=== PATIENT | female | born 1975 | race Caucasian/White ===

== ENCOUNTER 2017-02-02 13:46 | Emergency (ER) | payer BC, OTHER ==
[~2017-02-02] VITALS: Ht 152.4 cm; Wt 49.0 kg
[2017-02-02] MEDS ORDERED: ASPIRIN 81 MG CHEW (CHILDREN'S ASA) PO STA (14:10)
[2017-02-02] MEDS ORDERED: NS IV 1000 ML 1,000 ML IV ONE (14:10)
[2017-02-02] MEDS ORDERED: predniSONE 20 MG TAB PO ONE (14:15)
[2017-02-02 14:17] LABS: BASOPHILS % (AUTO) 1 % (0-10); EOSINOPHILS % (AUTO) 1 % (0-10); LYMPHOCYTES # (AUTO) 0.6 X 10^3 (1.0-4.0); LYMPHOCYTES % (AUTO) 14 % (12-44); MEAN CORPUSCULAR HEMOGLOBIN 29 PG (25-34); MEAN CORPUSCULAR HGB CONC 35 G/DL (32-36); MEAN CORPUSCULAR VOLUME 85 FL (80-99); MEAN PLATELET VOLUME 10.7 FL (7.4-10.4); MONOCYTES # (AUTO) 0.1 X 10^3 (0.0-1.0); MONOCYTES % (AUTO) 3 % (0-12); NEUTROPHILS # (AUTO) 3.6 X 10^3 (1.8-7.8); NEUTROPHILS % (AUTO) 82 % (42-75); PLATELET COUNT 230 10^3/uL (130-400); RED BLOOD COUNT 4.13 10^6/uL (4.35-5.85); RED CELL DISTRIBUTION WIDTH 14.7 % (10.0-14.5); WHITE BLOOD COUNT 4.4 10^3/uL (4.3-11.0)
[2017-02-02] MEDS ORDERED: HYDR200T PO (14:19)
[2017-02-02 14:25] LABS: PROTHROMBIN TIME PATIENT 13.6 SEC (12.2-14.7)
[2017-02-02 14:32] LABS: ALANINE AMINOTRANSFERASE 8 U/L (0-55); ALBUMIN 3.1 GM/DL (3.2-4.5); ANION GAP 13 MMOL/L (5-14); ASPARTATE AMINO TRANSFERASE 24 U/L (5-34); BILIRUBIN,TOTAL 0.4 MG/DL (0.1-1.0); BLOOD UREA NITROGEN 10 MG/DL (7-18); BUN/CREATININE RATIO 12; CALCIUM 8.9 MG/DL (8.5-10.1); CARBON DIOXIDE 23 MMOL/L (21-32); CHLORIDE 98 MMOL/L (98-107); CREATININE SERUM 0.81 MG/DL (0.60-1.30); GFR ESTIMATED > 60; GLUCOSE 139 MG/DL (70-105); MAGNESIUM 1.3 MG/DL (1.8-2.4); POTASSIUM 3.2 MMOL/L (3.6-5.0); SODIUM 134 MMOL/L (135-145)
--- NOTE | 2017-02-02 14:36 | ED Chest Pain ---
General Chief Complaint: Chest Pain Stated Complaint: CHEST PAIN/SOA/HEART PALPATATIONS/PAIN Nursing Triage Note: ARRIVED VIA AMB TO ROOM 04 WITH COMPLAINTS OF PALPITATIONS OFF AND ON FOR 2 DAYS WITH CHEST PAIN STARTING TODAY. Nursing Sepsis Screen: No Definite Risk Source: patient Exam Limitations: no limitations History of Present Illness Time seen by provider: 14:05 Initial Comments Here with report of central chest pain that is nonradiating and started early this morning. It has been intermittent and resolved currently. Is associated with nausea but no vomiting. Has chronic diarrhea. States she had a heart attack earlier this year that she was told was related to her lupus or are a. She did not have a heart catheter at that time. She reports her troponin was elevated. She is on medicine for a week related to A. fib and then off that. She is currently only on one medicine now. Was previously on prednisone daily but was tapered and has been off prednisone for 3 weeks now reports every time she does this in the 4 times a day tried she has had flare and had to be on prednisone again. She does report that she feels like she has a lupus flare: On right now as her joints are aching. Did report that she had palpitations 3 days ago in 2 days ago but none now. Moved to the area one month ago. She has follow-up with a display screen fabricator in the area next . Timing/Duration: changing over time, 2-3 days Severity/Quality: aching Location: central Radiation: no radiation Activities at Onset: none Modifying Factors: improves with rest ASA po BROOMCORN SCRAPER: No NTG SL BROOMCORN SCRAPER: No Associated Symptoms: No abdominal pain, No back pain, No dizziness, No fever/ chills, nausea/vomiting, No shortness of breath, weakness Allergies and Home Medications Allergies Coded Allergies: doxycycline (Verified Allergy, Severe, HYPOTENSION, 02/02/17) Home Medications Hydroxychloroquine Sulfate 200 Mg Tablet, 200 MG PO DAILY, (Reported) Prednisone 20 Mg Tab, 20 MG PO DAILY, #6 Ref 0 Prescribed by: TIM JAIME on 02/02/17 [id number] Review of Systems Constitutional: see HPI, No chills, No fever EENTM: No Symptoms Reported Respiratory: No Symptoms Reported Cardiovascular: See HPI, Chest Pain, Denies Edema, Irregular Heart Rate, Palpitations Gastrointestinal: Diarrhea, Nausea, Denies Vomiting Genitourinary: No Symptoms Reported Musculoskeletal: joint pain, No joint swelling Skin: no symptoms reported Psychiatric/Neurological: No Symptoms Reported Endocrine: No Symptoms Reported All Other Systems Reviewed Negative Unless Noted: Yes Past Qfjawtq-Ppcguz-Igwzkh Hx Patient Social History Alcohol Use: Denies Use Recreational Drug Use: No Smoking Status: Current Everyday Smoker Recent Foreign Travel: No Contact w/Someone Who Travel: No Recent Infectious Disease Expo: No Recent Hopitalizations: No Surgeries History of Surgeries: Yes (BILAT OVERIES) Surgeries: Appendectomy, Breast, Gallbladder Respiratory History of Respiratory Disorde: No Cardiovascular History of Cardiac Disorders: Yes Cardiac Disorders: Heart Attack, Hypertension Neurological History of Neurological Disord: Yes Neurological Disorders: Stroke Genitourinary History of Genitourinary Disor: No Gastrointestinal History of Gastrointestinal Di: No Musculoskeletal History of Musculoskeletal Dis: Yes Musculoskeletal Disorders: Rheumatoid Arthritis Endocrine History of Endocrine Disorders: Yes (LUPUS) Endocrine Disorders: Lupus HEENT History of HEENT Disorders: No Blood Transfusions History of Blood Disorders: Yes (FACTOR V, SICKLE CELL TRAIT) Reviewed Nursing Assessment Reviewed/Agree w Nursing PMH: Yes Family Medical History Significant Family History: Cancer Physical Exam Vital Signs Vital Sign - Last 12Hours 02/02/17 13:48 Temp 98.0 Pulse 112 Resp 18 B/P (MAP) 121/73 Pulse Ox 98 Capillary Refill : Less Than 3 Seconds General Appearance: No Apparent Distress, WD/WN HEENT: PERRL/EOMI, Pharynx Normal Neck: Supple Respiratory: Lungs Clear, Normal Breath Sounds Cardiovascular: Regular Rate, Rhythm, No Murmur Gastrointestinal: Non Tender, Soft Extremity: Normal Range of Motion, Non Tender Neurologic/Psychiatric: Alert, Oriented x3 Skin: Normal Color, Warm/Dry Progress/Results/Core Measures Results/Orders Lab Results Laboratory Tests Test 02/02/17 13:55 Range/Units White Blood Count 4.4 4.3-11.0 10^3/uL Red Blood Count 4.13 L 4.35-5.85 10^6/uL Hemoglobin 12.1 11.5-16.0 G/DL Hematocrit 35 35-52 % Mean Corpuscular Volume 85 80-99 FL Mean Corpuscular Hemoglobin 29 25-34 PG Mean Corpuscular Hemoglobin Concent 35 32-36 G/DL Red Cell Distribution Width 14.7 H 10.0-14.5 % Platelet Count 230 130-400 10^3/uL Mean Platelet Volume 10.7 H 7.4-10.4 FL Neutrophils (%) (Auto) 82 H 42-75 % Lymphocytes (%) (Auto) 14 12-44 % Monocytes (%) (Auto) 3 0-12 % Eosinophils (%) (Auto) 1 0-10 % Basophils (%) (Auto) 1 0-10 % Neutrophils # (Auto) 3.6 1.8-7.8 X 10^3 Lymphocytes # (Auto) 0.6 L 1.0-4.0 X 10^3 Monocytes # (Auto) 0.1 0.0-1.0 X 10^3 Eosinophils # (Auto) 0.0 0.0-0.3 10^3/uL Basophils # (Auto) 0.0 0.0-0.1 10^3/uL Prothrombin Time 13.6 12.2-14.7 SEC INR Comment 1.0 0.8-1.4 Activated Partial Thromboplast Time 29 24-35 SEC Sodium Level 134 L 135-145 MMOL/L Potassium Level 3.2 L 3.6-5.0 MMOL/L Chloride Level 98 98-107 MMOL/L Carbon Dioxide Level 23 21-32 MMOL/L Anion Gap 13 5-14 MMOL/L Blood Urea Nitrogen 10 7-18 MG/DL Creatinine 0.81 0.60-1.30 MG/DL Estimat Glomerular Filtration Rate > 60 BUN/Creatinine Ratio 12 Glucose Level 139 H 70-105 MG/DL Calcium Level 8.9 8.5-10.1 MG/DL Magnesium Level 1.3 L 1.8-2.4 MG/DL Total Bilirubin 0.4 0.1-1.0 MG/DL Aspartate Amino Transf (AST/SGOT) 24 5-34 U/L Alanine Aminotransferase (ALT/SGPT) 8 0-55 U/L Alkaline Phosphatase 57 40-136 U/L Myoglobin 46.8 10.0-92.0 NG/ML Troponin I < 0.30 <0.30 NG/ML Total Protein 7.0 6.4-8.2 GM/DL Albumin 3.1 L 3.2-4.5 GM/DL My Orders Orders - TIM JAIME MD Ekg Tracing (02/02/17 13:48) Cbc With Automated Diff (02/02/17 14:10) Magnesium (02/02/17 14:10) Chest 1 View, Ap/Pa Only (02/02/17 14:10) Cardiac Profile 1 (02/02/17 14:10) Comprehensive Metabolic Panel (02/02/17 14:10) Myoglobin Serum (02/02/17 14:10) Protime With Inr (02/02/17 14:10) Partial Thromboplastin Time (02/02/17 14:10) O2 (02/02/17 14:10) Monitor-Rhythm Ecg Trace Only (02/02/17 14:10) Lipid Panel (02/03/17 06:00) Saline Lock/Iv-Start (02/02/17 14:10) Ns Iv 1000 Ml (Sodium Chloride 0.9%) (02/02/17 14:10) Aspirin Chewable Tablet (Baby Aspirin Ch (02/02/17 14:10) Prednisone Tablet (Deltasone Tablet) (02/02/17 14:15) Ekg Tracing (02/02/17 16:01) Troponin I (02/02/17 16:01) Medications Given in ED Current Medications Medications Dose Ordered Sig/Alyssa Route Start Time Stop Time Status Last Admin Dose Admin Prednisone 40 mg ONCE ONCE PO 02/02/17 14:15 02/02/17 14:16 DC 02/02/17 14:25 40 MG Sodium Chloride 1,000 ml @ 0 mls/hr Q0M ONCE IV 02/02/17 14:10 02/02/17 14:13 DC 02/02/17 14:24 1,000 MLS/HR Vital Signs/I&O Vital Sign - Last 12Hours 02/02/17 13:48 Temp 98.0 Pulse 112 Resp 18 B/P (MAP) 121/73 Pulse Ox 98 Blood Pressure Mean: 89 Progress Note : Progress Note Seen and evaluated. IV, labs, EKG and chest x-ray. ASA 324 mg by mouth given. Monitor patient. 1600: No acute findings. Patient better after fluids and prednisone. Repeat troponin and EKG. ECG Initial ECG Impression Date: Feb 02, 2017 Initial ECG Impression Time: 13:51 Initial ECG Rate: 112 Initial ECG Rhythm: S.Tach Comment Sinus tachycardia with PVC. Left ventricular hypertrophy noted. No evidence of ST elevation MT. No previous available for comparison. Interpreted by me. EKG : EKG Time: 16:05 Rate: 89 Rhythm: Normal Sinus Intervals Sinus rhythm with LVH. No evidence of ST elevation MT. Improved with respect to rate. Interpreted by me. Departure Impression Impression: Primary Impression: Chest pain Qualified Codes: R07.9 - Chest pain, unspecified Additional Impression: Lupus Qualified Codes: L93.0 - Discoid lupus erythematosus Disposition: 01 HOME, SELF-CARE Condition: Improved Departure-Patient Inst. Decision time for Depature: 16:04 Referrals: RUPALI BAGLEY MD FACP [facility]S August HAYES MD, BASHAR J MD NO,LOCAL PHYSICIAN (PCP) Primary Care Physician Patient Instructions: Chest Pain (DC), Lupus (DC) Add. Discharge Instructions: All discharge instructions reviewed with patient and/or family. Voiced understanding. Take medications as directed. Follow-up with your Dr. as scheduled next for for recheck and further evaluation including continuation of steroids as indicated. Return for worse pain, fever, vomiting, weakness, breathing problems or other concerns as needed. Follow-up with the solder deposit operator within one week for recheck and further evaluation as well. You may call the solder deposit operator listed for of your choice. Scripts Prednisone (Prednisone) 20 Mg Tab 20 MG PO DAILY, #6 TAB 0 Refills Prov: TIM JAIME MD 02/02/17 TIM JAIME MD Feb 02, 2017 14:36
[2017-02-02 14:39] LABS: MYOGLOBIN SERUM 46.8 NG/ML (10.0-92.0)
--- NOTE | 2017-02-02 14:55 | Diagnostic Imaging Report ---
INDICATION: Chest pain. FINDINGS: Lungs are clear. The heart and vessels normal. No effusion or pneumothorax. IMPRESSION: Negative chest. Dictated by: Dictated on workstation # [id number]
[2017-02-02] MEDS ORDERED: PRD20T PO (16:06)
[2017-02-02 17:19] VITALS: BP 129/69
== END 2017-02-02 17:19 | disposition home or self-care (01) ==
LOC: EDUNIT# 13:46 → ER 13:54
DX: R07.89 Other chest pain (principal); L93.2 Other local lupus erythematosus; I48.91 Unspecified atrial fibrillation; I25.2 Old myocardial infarction; I10 Essential (primary) hypertension; D57.3 Sickle-cell trait; F17.200 Nicotine dependence, unspecified, uncomplicated; Z86.73 Personal history of transient ischemic attack (TIA), and cerebral infarction without residual deficits; Z90.49 Acquired absence of other specified parts of digestive tract
CPT/HCPCS: 36415; 71010; 80053; 83735; 83874; 84484; 85025; 85610; 85730; 93005; 93041; 96360

== ENCOUNTER → 2017-04-18 | Outpatient (CLI) | payer BC ==
[~2017-04-18] MED LIST: HYDR200T PO; PRD20T PO
[2017-04-19 20:56] LABS: TB GOLD MITOGEN-NIL VALUE 0.54 IU/mL (0.50-10.00); TB GOLD QUANTIFERON INTERP Negative (Negative)
[2017-04-20 06:57] LABS: TB GOLD NIL VALUE 0.06 IU/mL (0.00-7.99); TB GOLD TB ANTIGEN-NIL VALUE <0.00 IU/mL (0.00-0.34)
== END ==
LOC: LAB 11:41
PROVIDERS: ATTEND Internal Medicine Rheumatology
DX: Z51.81 Encounter for therapeutic drug level monitoring (principal); Z79.899 Other long term (current) drug therapy
CPT/HCPCS: 36415; 86480

== ENCOUNTER → 2017-06-22 | Outpatient (CLI) | payer OTHER ==
--- NOTE | 2017-06-22 13:37 | Diagnostic Imaging Report ---
INDICATION: Cough and shortness of breath. Time of exam 1:47 PM Correlation is made with prior study from 02/02/2017. The heart size is normal. The pulmonary vascularity is unremarkable. The lungs are clear. No infiltrate, effusion or pneumothorax is detected. Impression: No acute cardiopulmonary process is detected. Dictated by: Dictated on workstation # [id number]
== END ==
LOC: RT 12:52
PROVIDERS: ATTEND Neuromusculoskeletal Medicine, Sports Medicine
DX: Z02.71 Encounter for disability determination (principal)
CPT/HCPCS: 71046; 94060

== ENCOUNTER → 2017-07-30 | Outpatient (CLI) | payer BC, MEDICAID ==
[~2017-07-30] MED LIST changes: -HYDR200T PO; +HYDR200T78 PO
[2017-07-30 10:55] LABS: BILIRUBIN,URINE NEGATIVE (NEGATIVE); CLARITY,URINE CLEAR; COLOR,URINE YELLOW; GLUCOSE, URINE (UA) NEGATIVE (NEGATIVE); KETONES,URINE NEGATIVE (NEGATIVE); LEUKOCYTE ESTERASE ,URINE 2+ (NEGATIVE); NITRITE,URINE NEGATIVE (NEGATIVE); PH,URINE 6 (5-9); PROTEIN,URINE NEGATIVE (NEGATIVE); UROBILINOGEN,URINE NORMAL (NORMAL)
[2017-07-30 11:14] LABS: BACTERIA,URINE TRACE /HPF
[2017-07-30 11:15] LABS: SQUAMOUS EPITHELIAL CELL,UR RARE /HPF
== END ==
LOC: LAB 10:21
PROVIDERS: ATTEND Internal Medicine Rheumatology
DX: M32.19 Other organ or system involvement in systemic lupus erythematosus (principal)
CPT/HCPCS: 36415; 81000; 82570; 84156; 85652; 86141; 86160; 86225

== ENCOUNTER → 2017-10-23 | Outpatient (CLI) | payer BC, MEDICAID ==
[~2017-10-23] MED LIST changes: +ACET-2469 PO; +BUSP7.5T5 PO; +CALC-654 PO; +CELE100C84 PO; +CLIN300C11 PO; +FOLI1TAB24 PO; +HYDR200T46 PO; +LIFI1DRO OU; +METH2.5T PO; +MULT-35 PO; +PRED5TAB PO; +PREG75CA PO
[2017-10-23 15:06] LABS: BASOPHILS % (AUTO) 0 % (0-10); EOSINOPHILS # (AUTO) 0.1 10^3/uL (0.0-0.3); EOSINOPHILS % (AUTO) 1 % (0-10); HEMATOCRIT 37 % (35-52); HEMOGLOBIN 12.7 G/DL (11.5-16.0); LYMPHOCYTES # (AUTO) 1.3 X 10^3 (1.0-4.0); LYMPHOCYTES % (AUTO) 24 % (12-44); MEAN CORPUSCULAR HEMOGLOBIN 32 PG (25-34); MEAN CORPUSCULAR HGB CONC 35 G/DL (32-36); MEAN CORPUSCULAR VOLUME 92 FL (80-99); MONOCYTES # (AUTO) 0.2 X 10^3 (0.0-1.0); MONOCYTES % (AUTO) 3 % (0-12); NEUTROPHILS % (AUTO) 72 % (42-75); PLATELET COUNT 241 10^3/uL (130-400); RED BLOOD COUNT 3.99 10^6/uL (4.35-5.85); RED CELL DISTRIBUTION WIDTH 14.4 % (10.0-14.5); WHITE BLOOD COUNT 5.6 10^3/uL (4.3-11.0)
[2017-10-23 15:11] LABS: BILIRUBIN,URINE NEGATIVE (NEGATIVE); CLARITY,URINE CLEAR; COLOR,URINE YELLOW; GLUCOSE, URINE (UA) NEGATIVE (NEGATIVE); KETONES,URINE NEGATIVE (NEGATIVE); LEUKOCYTE ESTERASE ,URINE 1+ (NEGATIVE); NITRITE,URINE NEGATIVE (NEGATIVE); PH,URINE 5 (5-9); PROTEIN,URINE NEGATIVE (NEGATIVE); UROBILINOGEN,URINE NORMAL (NORMAL)
[2017-10-23 15:25] LABS: BACTERIA,URINE TRACE /HPF; WBC,URINE 0-2 /HPF
[2017-10-23 15:25] LABS: ALBUMIN 4.1 GM/DL (3.2-4.5); BILIRUBIN,DIRECT 0.1 MG/DL (0.0-0.3); BILIRUBIN,INDIRECT 0.2 MG/DL; BILIRUBIN,TOTAL 0.3 MG/DL (0.1-1.0); CREATININE SERUM 0.92 MG/DL (0.60-1.30); TOTAL PROTEIN 7.6 GM/DL (6.4-8.2)
[2017-10-23 15:55] LABS: ERYTHROCYTE SEDIMENTATION RATE 32 MM/HR (0-20)
== END ==
LOC: LAB 14:41
PROVIDERS: ATTEND Internal Medicine Rheumatology
DX: M32.19 Other organ or system involvement in systemic lupus erythematosus (principal); Z79.899 Other long term (current) drug therapy
CPT/HCPCS: 36415; 80076; 81000; 82565; 82570; 84156; 85025; 85652; 86141; 86160; 86225

== ENCOUNTER → 2017-10-24 | Outpatient (CLI) | payer BC, MEDICAID | LOC: LAB 09:36 | PROVIDERS: ATTEND Internal Medicine Rheumatology | DX: M32.19 Other organ or system involvement in systemic lupus erythematosus (principal); M79.674 Pain in right toe(s) | CPT/HCPCS: 36415; 84550 ==

== ENCOUNTER → 2017-10-30 | Outpatient (CLI) | payer BC, MEDICAID ==
--- NOTE | 2017-10-30 17:44 | Diagnostic Imaging Report ---
INDICATION: Right big toe pain x2 months. Redness. No known trauma. TECHNIQUE: 3 views of the toe. CORRELATION STUDY: None FINDINGS: There lucency noted about the distal phalanx of the great toe with somewhat of an erosive appearance. There is loss of cortex particularly along its dorsal distal aspect. The proximal phalanx and visualized portion of the first metatarsal intact. Some soft tissue swelling is noted. IMPRESSION: Abnormal appearance of the distal phalanx of the great toe. There is somewhat of an erosive appearance and does raise concern for potential osteomyelitis. Underlying nonhealing fracture not excluded. Dictated by: Dictated on workstation # [id number]
--- NOTE | 2017-10-30 17:58 | Diagnostic Imaging Report ---
INDICATION: Big toe pain x2 months with little redness. TECHNIQUE: Three views of the right foot. CORRELATION STUDY: None FINDINGS: Diffuse bony demineralization is present. There is abnormal lucency about the distal phalanx of the great toe. There does appear to be presence of a fracture line. However, there is also suggestion of some erosion. Remaining osseous structures demonstrate no acute bony abnormality. Soft tissue swelling in the region of the great toe. IMPRESSION: 1. Abnormal appearance about the distal phalanx of the great toe. While conceivably could be reflective of a fracture, does appear to be somewhat of an erosive appearance along with soft tissue swelling. Given history of no known trauma, possibility of osteomyelitis should be considered and is suspect. Dictated by: Dictated on workstation # [id number]
== END ==
LOC: RAD 14:03
PROVIDERS: ATTEND Family Medicine
DX: M79.674 Pain in right toe(s) (principal); M79.671 Pain in right foot
CPT/HCPCS: 73630; 73660

== ENCOUNTER 2017-11-01 11:09 | Inpatient (IN) | payer BC, MEDICAID ==
[~2017-11-01] VITALS: Ht 152.4 cm; Wt 56.0 kg
[~2017-11-01 11:09] MED LIST changes: -ACET-2469 PO; -BUSP7.5T5 PO; -CALC-654 PO; -CELE100C84 PO; -CLIN300C11 PO; -FOLI1TAB24 PO; -HYDR200T46 PO; -LIFI1DRO OU; -METH2.5T PO; -MULT-35 PO; -PRED5TAB PO; -PREG75CA PO
[2017-11-01] MEDS ORDERED: PREG75CA PO ×2 (14:54)
[2017-11-01] MEDS ORDERED: HYDR200T46 PO (14:54)
[2017-11-01] MEDS ORDERED: CELE100C84 PO (14:54)
[2017-11-01] MEDS ORDERED: FOLI1TAB24 PO (14:54)
[2017-11-01] MEDS ORDERED: BUSP7.5T5 PO (14:54)
[2017-11-01] MEDS ORDERED: LIFI1DRO OU (14:54)
[2017-11-01] MEDS ORDERED: PRED5TAB PO (14:54)
[2017-11-01] MEDS ORDERED: MULT-35 PO (14:57)
[2017-11-01] MEDS ORDERED: CALC-654 PO (14:57)
[2017-11-01] MEDS ORDERED: ACET-2469 PO (14:57)
[2017-11-01] MEDS ORDERED: METH2.5T PO (15:00)
[2017-11-01] MEDS: ENOXAPARIN 40 MG/0.4 ML (LOVENOX) SYR SC SCH (15:16)
[2017-11-01] MEDS ORDERED: GADOBUTROL 7.5 MMOL/7.5 ML (GADAVIST) VIAL IV ONE (15:30)
[2017-11-01 16:10] VITALS: BP 109/55
--- NOTE | 2017-11-01 16:14 | Diagnostic Imaging Report ---
PROCEDURE: MR imaging right lower extremity with and without contrast. TECHNIQUE: Multiplanar, multisequence pre and post contrast-enhanced MR imaging of the right lower extremity was accomplished. INDICATION: Right great toe infection. Evaluate for osteomyelitis. COMPARISON: Radiographs from 10/30/2017. FINDINGS: Abnormal bone marrow edema throughout the great toe distal phalanx with associated T1 hypointense marrow replacement and avid homogeneous enhancement. The proximal phalanx of the great toe is normal. Remainder of the osseous structures in the visualized forefoot are normal. No soft tissue fluid collection to indicate drainable abscess. Intrinsic musculature of the foot is normal in bulk. No intermetatarsal bursitis. IMPRESSION: 1. Abnormal edema and bone marrow replacement in the great toe distal phalanx is concerning for osteomyelitis in the setting of a dermal ulcer/nail bed defect. If the patient does not have a dermal ulcer/nailbed defect, then osteomyelitis may not be present. These changes could be due to a fracture, although this is felt less likely. Therefore, if the clinical features do not support osteomyelitis, a followup MRI in 2-3 weeks is advised to assess for healing changes. Dictated by: Dictated on workstation # [id number]
[2017-11-01 16:24] LABS: BASOPHILS % (AUTO) 0 % (0-10); EOSINOPHILS # (AUTO) 0.1 10^3/uL (0.0-0.3); EOSINOPHILS % (AUTO) 1 % (0-10); HEMATOCRIT 35 % (35-52); HEMOGLOBIN 12.5 G/DL (11.5-16.0); LYMPHOCYTES # (AUTO) 1.3 X 10^3 (1.0-4.0); LYMPHOCYTES % (AUTO) 21 % (12-44); MEAN CORPUSCULAR HEMOGLOBIN 33 PG (25-34); MEAN CORPUSCULAR HGB CONC 36 G/DL (32-36); MEAN CORPUSCULAR VOLUME 91 FL (80-99); MEAN PLATELET VOLUME 11.6 FL (7.4-10.4); MONOCYTES # (AUTO) 0.3 X 10^3 (0.0-1.0); MONOCYTES % (AUTO) 5 % (0-12); NEUTROPHILS # (AUTO) 4.3 X 10^3 (1.8-7.8); NEUTROPHILS % (AUTO) 72 % (42-75); PLATELET COUNT 216 10^3/uL (130-400); RED BLOOD COUNT 3.79 10^6/uL (4.35-5.85); RED CELL DISTRIBUTION WIDTH 14.7 % (10.0-14.5); WHITE BLOOD COUNT 5.9 10^3/uL (4.3-11.0)
[2017-11-01 16:44] LABS: ALANINE AMINOTRANSFERASE 9 U/L (0-55); ALBUMIN 4.4 GM/DL (3.2-4.5); ALKALINE PHOSPHATASE 45 U/L (40-136); BILIRUBIN,TOTAL 0.3 MG/DL (0.1-1.0); BUN/CREATININE RATIO 10; CALCIUM 9.7 MG/DL (8.5-10.1); CARBON DIOXIDE 27 MMOL/L (21-32); CHLORIDE 104 MMOL/L (98-107); CREATININE SERUM 0.84 MG/DL (0.60-1.30); GFR ESTIMATED > 60; GLUCOSE 84 MG/DL (70-105); POTASSIUM 3.9 MMOL/L (3.6-5.0); SODIUM 139 MMOL/L (135-145); TOTAL PROTEIN 7.9 GM/DL (6.4-8.2)
[2017-11-01 16:46] LABS: ERYTHROCYTE SEDIMENTATION RATE 25 MM/HR (0-20)
[2017-11-01] MEDS ORDERED: VANCOMYCIN INJECTION 0.1 MG in NS (IVPB) 250 ML IV SCH (17:30)
--- NOTE | 2017-11-01 17:35 | History & Physical ---
History of Present Illness History of Present Illness Reason for visit/HPI 42 year old female directly admitted for right great toe osteomyelitis- Onset of right great toe pain: around 2 months ago when it started with an ingrown toenail. Location? R great toe Symptoms: joint pain, burning, no oozing, no swelling- difficulty bending the toe. Medicine used: soaking in Epsom, abx cream. What makes it worse? pressure , even light pressure such as her sheet at night ; industrial accountant stan a uric acid level on her recently because he wondered if she had gout. Of note patient is on methotrexate for her SLE. We will hold her methotrexate for now- I have updated Dr. Tye Manuel, Rheumatology. What makes it better? nothing Current Status: worsening Denies chills, She is on 5mg prednisone and plaquenil for lupus. Denies fever, diarrhea, vomiting. Normal urinating, bowel movements She has frequent ingrown toenails. she removed the ingrown part of the toenail herself around 09/29/17. She finished 10 days of doxycycline on 10/10/17- which the paronychia aspect improved a great deal but the joint pain lingered. Patient does continue to smoke cigarettes. Date of Admission Nov 01, 2017 at 13:41 Date Seen by Provider: Nov 01, 2017 Time Seen by Provider: 18:00 I consulted on this patient on 11/01/17 17:27 Attending Physician Matt Granda MD Admitting Physician Matt Granda MD Consult Podiatry Dr. Adams Allergies and Home Medications Allergies Coded Allergies: doxycycline (Verified Allergy, Severe, HYPOTENSION, 02/02/17) Home Medications Acetaminophen/Diphenhydramine 1 Each Tablet, 2 TAB PO HS, (Reported) Buspirone HCl 7.5 Mg Tablet, 7.5 MG PO BID, (Reported) Calcium Carbonate/Vitamin D3 1 Each Tablet, 1 TAB PO DAILY, (Reported) Celecoxib 100 Mg Capsule, 100 MG PO BID, (Reported) Folic Acid 1 Mg Tablet, 2 MG PO DAILY, (Reported) TAKES 2 (1MG) TABLETS Hydroxychloroquine Sulfate 200 Mg Tablet, 300 MG PO HS, (Reported) TAKES 1 & 1/2 (200MG) TABLETS Lifitegrast 1 Each Droperette, 1 DROP OU BID, (Reported) Methotrexate Sodium 2.5 Mg Tablet, 12.5 MG PO Fr, (Reported) TAKES 5 (2.5MG) TABLETS Multivitamin 1 Each Tablet, 1 TAB PO DAILY, (Reported) Prednisone 5 Mg Tablet, 5 MG PO DAILY, (Reported) Pregabalin 75 Mg Capsule, 75 MG PO DAILY, (Reported) Pregabalin 75 Mg Capsule, 150 MG PO HS, (Reported) TAKES 2 (75MG) CAPSULES Patient Home Medication List Home Medication List Reviewed: Yes Past Vsynerv-Ikwqus-Ktqbda Hx Patient Social History Alcohol Use: Denies Use Recreational Drug Use: No Smoking Status: Current Everyday Smoker Type Used: Cigarettes Physical Abuse Screen: No Sexual Abuse: No Recent Foreign Travel: No Recent Hopitalizations: No (14 MONTS AGO) Seasonal Allergies Seasonal Allergies: Yes Surgeries Yes Appendectomy, Breast, Gallbladder Respiratory Yes Currently Using CPAP: No Currently Using BIPAP: No Cardiovascular Yes (A-FIB WHEN HAD HEART ATTACK. IT WAS REVERDES WITH MEDICATION (2016)) Heart Attack, Hypertension Neurological Yes (MEMORY PROBLEMS. WHEN 18 YRS AGO HAD A STROKE) Stroke Reproductive System Sexually Transmitted Disease: No HIV/AIDS: No Female Reproductive Disorders: Ovarian Cyst Genitourinary No Gastrointestinal Yes (LIVER AND KIDNEY PROBLEMS A YEAR AGO ( 2017 )) Chronic Diarrhea, Gall Bladder Disease Musculoskeletal Yes Arthritis, Fibromyalgia, Rheumatoid Arthritis Endocrine History of Endocrine Disorders: Yes Endocrine Disorders: Lupus HEENT History of HEENT Disorders: Yes (WEARS GLASSES. MISSING TEETH, SORES IN MOUTH AT TIMES) HEENT Disorders: Tinnitis Hearing Impairment: Denies Cancer No Cancer Comment: RUKHSANA. 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) Family Medical History Significant Family History: Cancer Review of Systems Review of Systems General: No Chills, No Night Sweats HEENT: No Head Aches, No Visual Changes Pulmonary: No Dyspnea, No Cough Cardiovascular: No: Chest Pain, Palpitations Gastrointestinal: No: Nausea, Vomiting, Abdominal Pain Genitourinary: No Dysuria, No Frequency Musculoskeletal: foot pain (right great toe pain); No: neck pain, shoulder pain Neurological: No: Weakness, Change in speech, Confusion Physical Exam Vital Signs Vital Signs - First Documented 11/01/17 11/01/17 15:24 16:10 Temp 97.6 Pulse 71 Resp 18 B/P (MAP) 109/55 (73) Pulse Ox 99 O2 Delivery Room Air Capillary Refill : General Appearance: No Apparent Distress, WD/WN HEENT: PERRL/EOMI Neck: Full Range of Motion Respiratory: Chest Non Tender, Lungs Clear, Normal Breath Sounds, No Accessory Muscle Use, No Respiratory Distress Cardiovascular: Regular Rate, Rhythm, No Edema Gastrointestinal: Non Tender, Soft Rectal: Deferred Back: Normal Inspection, No CVA Tenderness Extremity: Normal Capillary Refill, Other (right great toe- erythema- pain with any movement of distal joint.) Neurologic/Psychiatric: Alert, Oriented x3 Skin: Warm/Dry Assessment/Plan Assessment/Plan Admission Dx M86.171 Other acute osteomyelitis, right ankle and foot-- right great toe. Admission Status: Inpatient Order (span 2 midnights) Reason for Inpatient Admission: osteomyelitis of right great toe worsening pain duration 2+ months. Assessment and Plan 42 yo F right great toe osteomyelitis- consulting Dr. Adams, podiatry- obtained MRI , blood cultures, ESR 25 -IV vancomycin, rocephin. Systemic Lupus Erythematosus- holding her methotrexate- continue plaquenil. tobaccoism- encourage cessation Dispo: plan to have Dr. Adams weigh in on plan. Problems: (1) Nicotine dependence, cigarettes, uncomplicated (2) SLE (systemic lupus erythematosus) Qualifiers: Qualified Codes: M32.19 - Other organ or system involvement in systemic lupus erythematosus (3) Toe osteomyelitis, right Assessment & Plan: consulting Dr. Adams, podiatry- obtained MRI, blood cultures, ESR 25 -IV vancomycin, rocephin. Clinical Quality Measures DVT/VTE Risk/Contraindication: Risk Factor Score Per Nursin RFS Level Per Nursing on Admit: 3=High MATT GRANDA MD Nov 01, 2017 17:35
[2017-11-01] MEDS ORDERED: CATHETER FLUSH 10 ML SYR IV PRN (18:30)
[2017-11-01] MEDS ORDERED: ACETAMINOPHEN 500 MG TAB (TYLENOL) PO PRN (18:30)
[2017-11-01] MEDS ORDERED: VANCOMYCIN 1250 MG/NS 250 ML IVPB IV NR ×2 (18:30)
[2017-11-01] MEDS: cefTRIAXone INJECTION 2,000 MG in NS (IVPB) 50 ML IV SCH (18:39)
[2017-11-01] MEDS: HYDROcodone/APAP 7.5 MG/325 MG (LORTAB, LORCET PLUS) TABLET PO PRN (18:44)
[2017-11-01 21:32] VITALS: BP 108/55
[2017-11-01] MEDS: CATHETER FLUSH 10 ML SYR IV SCH (22:23)
[2017-11-02 00:31] VITALS: BP 111/69
[2017-11-02 04:20] VITALS: BP 119/53
[2017-11-02] MEDS: CATHETER FLUSH 10 ML SYR IV SCH ×2 (05:30→14:07)
[2017-11-02 06:15] LABS: BASOPHILS % (AUTO) 0 % (0-10); EOSINOPHILS # (AUTO) 0.2 10^3/uL (0.0-0.3); EOSINOPHILS % (AUTO) 4 % (0-10); HEMATOCRIT 34 % (35-52); HEMOGLOBIN 11.5 G/DL (11.5-16.0); LYMPHOCYTES # (AUTO) 1.3 X 10^3 (1.0-4.0); LYMPHOCYTES % (AUTO) 24 % (12-44); MEAN CORPUSCULAR HEMOGLOBIN 32 PG (25-34); MEAN CORPUSCULAR HGB CONC 34 G/DL (32-36); MEAN CORPUSCULAR VOLUME 92 FL (80-99); MEAN PLATELET VOLUME 11.2 FL (7.4-10.4); MONOCYTES # (AUTO) 0.3 X 10^3 (0.0-1.0); MONOCYTES % (AUTO) 6 % (0-12); NEUTROPHILS # (AUTO) 3.8 X 10^3 (1.8-7.8); NEUTROPHILS % (AUTO) 67 % (42-75); PLATELET COUNT 193 10^3/uL (130-400); RED BLOOD COUNT 3.65 10^6/uL (4.35-5.85); RED CELL DISTRIBUTION WIDTH 14.7 % (10.0-14.5); WHITE BLOOD COUNT 5.7 10^3/uL (4.3-11.0)
[2017-11-02] MEDS ORDERED: VANCOMYCIN 750 MG/NS 250 ML IVPB IV SCH ×2 (06:30)
[2017-11-02 06:42] LABS: ALANINE AMINOTRANSFERASE 7 U/L (0-55); ALBUMIN 3.9 GM/DL (3.2-4.5); ALKALINE PHOSPHATASE 39 U/L (40-136); BILIRUBIN,TOTAL 0.4 MG/DL (0.1-1.0); BUN/CREATININE RATIO 12; CALCIUM 9.3 MG/DL (8.5-10.1); CARBON DIOXIDE 25 MMOL/L (21-32); CHLORIDE 108 MMOL/L (98-107); CREATININE SERUM 0.78 MG/DL (0.60-1.30); GFR ESTIMATED > 60; GLUCOSE 86 MG/DL (70-105); POTASSIUM 3.5 MMOL/L (3.6-5.0); SODIUM 141 MMOL/L (135-145); TOTAL PROTEIN 6.9 GM/DL (6.4-8.2)
--- NOTE | 2017-11-02 07:50 | Progress Note (SOAP) ---
Subjective Subjective Date Seen by Provider: Nov 02, 2017 Time Seen by Provider: 08:20 42 yo F no overnight events, slept well- pain was controlled in her right great toe- still hurts to bend or move it. no issues with po intake or going to the restroom. Pt would like to go home as soon as possible. Review of Systems General: No Chills, No Night Sweats HEENT: No Head Aches, No Visual Changes, No Eye Pain Pulmonary: No Dyspnea, No Cough Cardiovascular: No: Chest Pain, Palpitations Gastrointestinal: No: Nausea, Vomiting Genitourinary: No Dysuria Musculoskeletal: foot pain (right great toe); No: neck pain, shoulder pain Neurological: No: Weakness Objective Exam Vital Signs Vital Signs Date Time Temp Pulse Resp B/P (MAP) Pulse Ox O2 Delivery O2 Flow Rate FiO2 11/02/17 04:20 97.4 75 18 119/53 (75) 98 Room Air 11/02/17 00:31 97.6 72 18 111/69 (83) 99 Room Air 11/01/17 21:32 97.5 72 18 108/55 (72) 98 Room Air 11/01/17 16:10 97.6 71 18 109/55 (73) 99 Room Air 11/01/17 15:24 Room Air I & O 11/02/17 07:00 Intake Total 660 ml Balance 660 ml General Appearance: No Apparent Distress, WD/WN HEENT: PERRL/EOMI Respiratory: Chest Non Tender, Lungs Clear, Normal Breath Sounds, No Accessory Muscle Use, No Respiratory Distress Cardiovascular: Regular Rate, Rhythm, No Edema Gastrointestinal: Normal Bowel Sounds, Soft Rectal: Deferred Extremity: Normal Capillary Refill, Normal Inspection Neurologic/Psychiatric: Alert, Oriented x3, No Motor/Sensory Deficits, Other ( pain with movement of right great toe.) Skin: Normal Color, Warm/Dry Results Lab Laboratory Tests 11/01/17 16:05: White Blood Count 5.9, Red Blood Count 3.79L, Hemoglobin 12.5, Hematocrit 35, Mean Corpuscular Volume 91, Mean Corpuscular Hemoglobin 33, Mean Corpuscular Hemoglobin Concent 36, Red Cell Distribution Width 14.7H, Platelet Count 216, Mean Platelet Volume 11.6H, Neutrophils (%) (Auto) 72, Lymphocytes (%) (Auto) 21 , Monocytes (%) (Auto) 5, Eosinophils (%) (Auto) 1, Basophils (%) (Auto) 0, Neutrophils # (Auto) 4.3, Lymphocytes # (Auto) 1.3, Monocytes # (Auto) 0.3, Eosinophils # (Auto) 0.1, Basophils # (Auto) 0.0, Erythrocyte Sedimentation Rate 25H, Sodium Level 139, Potassium Level 3.9, Chloride Level 104, Carbon Dioxide Level 27, Anion Gap 8, Blood Urea Nitrogen 8, Creatinine 0.84, Estimat Glomerular Filtration Rate > 60, BUN/Creatinine Ratio 10, Glucose Level 84, Lactic Acid Level 0.80, Calcium Level 9.7, Total Bilirubin 0.3, Aspartate Amino Transf (AST/SGOT) 18, Alanine Aminotransferase (ALT/SGPT) 9, Alkaline Phosphatase 45, Total Protein 7.9, Albumin 4.4 11/02/17 05:55: White Blood Count 5.7, Red Blood Count 3.65L, Hemoglobin 11.5, Hematocrit 34L, Mean Corpuscular Volume 92, Mean Corpuscular Hemoglobin 32, Mean Corpuscular Hemoglobin Concent 34, Red Cell Distribution Width 14.7H, Platelet Count 193, Mean Platelet Volume 11.2H, Neutrophils (%) (Auto) 67, Lymphocytes (%) (Auto) 24 , Monocytes (%) (Auto) 6, Eosinophils (%) (Auto) 4, Basophils (%) (Auto) 0, Neutrophils # (Auto) 3.8, Lymphocytes # (Auto) 1.3, Monocytes # (Auto) 0.3, Eosinophils # (Auto) 0.2, Basophils # (Auto) 0.0, Sodium Level 141, Potassium Level 3.5L, Chloride Level 108H, Carbon Dioxide Level 25, Anion Gap 8, Blood Urea Nitrogen 9, Creatinine 0.78, Estimat Glomerular Filtration Rate > 60, BUN/ Creatinine Ratio 12, Glucose Level 86, Calcium Level 9.3, Total Bilirubin 0.4, Aspartate Amino Transf (AST/SGOT) 16, Alanine Aminotransferase (ALT/SGPT) 7, Alkaline Phosphatase 39L, Total Protein 6.9, Albumin 3.9 Assessment/Plan Assessment/Plan Admission Dx M86.171 Other acute osteomyelitis, right ankle and foot-- right great toe. Admission Status: Inpatient Order (span 2 midnights) Reason for Inpatient Admission: osteomyelitis right great toe- needing IV antibiotics lupus Assessment and Plan 42 yo F right great toe osteomyelitis- consulting Dr. Adams, podiatry- obtained MRI , blood cultures, ESR 25 -IV vancomycin, rocephin. Systemic Lupus Erythematosus- holding her methotrexate- continue plaquenil. tobaccoism- encourage cessation DISPO: CONTINUE IV ANTIBIOTICS OVER THE WEEKEND, THEN ON SUNDAY NOVEMBER 05, 2017- decide if we need to continue IV vs PO. Dr. Adams to consider surgical intervention. Problems: (1) Nicotine dependence, cigarettes, uncomplicated (2) SLE (systemic lupus erythematosus) Qualifiers: Qualified Codes: M32.19 - Other organ or system involvement in systemic lupus erythematosus (3) Toe osteomyelitis, right Assessment & Plan: consulting Dr. Adams, podiatry- obtained MRI, blood cultures, ESR 25 -IV vancomycin, rocephin. (4) Hypokalemia Assessment & Plan: replacing Admission Dx M86.171 Other acute osteomyelitis, right ankle and foot-- right great toe. Clinical Quality Measures Admission Status Admission Dx M86.171 Other acute osteomyelitis, right ankle and foot-- right great toe. DVT/VTE Risk/Contraindication: Risk Factor Score Per Nursin RFS Level Per Nursing on Admit: 3=High VIMAL CASTANON MD Nov 02, 2017 07:50
[2017-11-02 08:00] VITALS: BP 117/56
[2017-11-02] MEDS ORDERED: predniSONE 5 MG TAB PO SCH (09:00)
[2017-11-02] MEDS ORDERED: FOLIC ACID 1 MG TAB PO SCH (09:00)
[2017-11-02] MEDS ORDERED: PREGABALIN 75 MG (LYRICA) CAP PO SCH ×2 (09:00→21:00)
[2017-11-02] MEDS ORDERED: NON-FORMULARY MEDICATION 1 EA EA (Lifitegrast (Xiidra) 1 DROP) OU SCH (09:00)
[2017-11-02] MEDS ORDERED: LIDOCAINE 2% 20 ML (XYLOCAINE) VIAL INJ NR (09:50)
[2017-11-02] MEDS: HYDROcodone/APAP 7.5 MG/325 MG (LORTAB, LORCET PLUS) TABLET PO PRN (09:55)
--- NOTE | 2017-11-02 09:58 | Consultation ---
History of Present Illness History of Present Illness Patient Consulted On(hazel/time) 11/02/17 09:53 Date Seen by Provider: Nov 02, 2017 Time Seen by Provider: 09:53 Reason for Visit: Cellulitis Right Great Toe History of Present Illness Pt states she has had cellulitis and pain to her right great toe for the past 2- 3mo. She states that her pain started after going off her prednisone. She also started getting an ingrown nail to the area that she debrided on her own. Allergies and Home Medications Allergies Coded Allergies: doxycycline (Verified Allergy, Severe, HYPOTENSION, 02/02/17) Home Medications Acetaminophen/Diphenhydramine 1 Each Tablet, 2 TAB PO HS, (Reported) Buspirone HCl 7.5 Mg Tablet, 7.5 MG PO BID, (Reported) Calcium Carbonate/Vitamin D3 1 Each Tablet, 1 TAB PO DAILY, (Reported) Celecoxib 100 Mg Capsule, 100 MG PO BID, (Reported) Folic Acid 1 Mg Tablet, 2 MG PO DAILY, (Reported) TAKES 2 (1MG) TABLETS Hydroxychloroquine Sulfate 200 Mg Tablet, 300 MG PO HS, (Reported) TAKES 1 & 1/2 (200MG) TABLETS Lifitegrast 1 Each Droperette, 1 DROP OU BID, (Reported) Methotrexate Sodium 2.5 Mg Tablet, 12.5 MG PO Fr, (Reported) TAKES 5 (2.5MG) TABLETS Multivitamin 1 Each Tablet, 1 TAB PO DAILY, (Reported) Prednisone 5 Mg Tablet, 5 MG PO DAILY, (Reported) Pregabalin 75 Mg Capsule, 75 MG PO DAILY, (Reported) Pregabalin 75 Mg Capsule, 150 MG PO HS, (Reported) TAKES 2 (75MG) CAPSULES Patient Home Medication List Home Medication List Reviewed: Yes Past Dyzlstl-Jeiokq-Yaqnvx Hx Patient Social History Alcohol Use: Denies Use Recreational Drug Use: No Smoking Status: Current Everyday Smoker Type Used: Cigarettes Recent Foreign Travel: No Recent Hopitalizations: No (14 MONTS AGO) Seasonal Allergies Seasonal Allergies: Yes Past Medical History Surgeries: Yes Appendectomy, Breast, Gallbladder Respiratory: Yes Chronic Bronchitis, COPD Currently Using CPAP: No Currently Using BIPAP: No Cardiac: Yes (A-FIB WHEN HAD HEART ATTACK. IT WAS REVERDES WITH MEDICATION ( 2016)) Heart Attack, Hypertension Neurological: Yes (MEMORY PROBLEMS. WHEN 18 YRS AGO HAD A STROKE) Stroke Female Reproductive Disorders: Ovarian Cyst Sexually Transmitted Disease: No HIV/AIDS: No Genitourinary: No Gastrointestinal: Yes (LIVER AND KIDNEY PROBLEMS A YEAR AGO ( 2017 )) Chronic Diarrhea, Gall Bladder Disease Musculoskeletal: Yes Arthritis, Fibromyalgia, Rheumatoid Arthritis Endocrine: Yes Lupus HEENT: Yes (WEARS GLASSES. MISSING TEETH, SORES IN MOUTH AT TIMES) Tinnitis Hearing Impairment: Denies Cancer: No RUKHSANA. 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) Family Medical History Cancer Review of Systems-General Respiratory: No no symptoms reported, No see HPI, No cough, No dyspnea on exertion, No hemoptysis, No orthopnea, No phlegm, No short of breath, No stridor , No wheezing, No other Musculoskeletal: joint pain, joint swelling, muscle stiffness Physical Exam-General Problems Physical Exam Vital Signs Vital Signs - First Documented 11/01/17 11/01/17 15:24 16:10 Temp 97.6 Pulse 71 Resp 18 B/P (MAP) 109/55 (73) Pulse Ox 99 O2 Delivery Room Air Capillary Refill : Extremities: other (N/V status intact to the right foot, erythema to the right great toe, no open wounds, no purulence/fluctuance) Assessment/Plan Assessment/Plan Admission Diagnosis/Plan 1. Cellulitis Right Great Toe 2. Ingrown Nail Right Great Toe -MRI and X-rays reviewed, inconclusive for osteomyelitis of the right great toe -Bedside procedure was preformed today for nail Avulsion of the right great toenail. The right great toe was prepped in an aseptic manner and the was anesthetized with 5cc of 1% lidocaine in a digital block type fashion. The nail was then freed from the nail bed with a freer elevator and the nail was removed with a hemostat. The toe was then dressed with adaptic 4x4s and coban. -Pt is okay to go home on oral clindamycin for 4-6 weeks for treatment of possible bony infection. -Follow up with Dr Tenorio in 2 weeks. Reason for Inpatient Admission: Cellulitis Clinical Quality Measures DVT/VTE Risk/Contraindication: Risk Factor Score Per Nursin RFS Level Per Nursing on Admit: 3=High MELO TENORIO DPM Nov 02, 2017 09:58
[2017-11-02] MEDS ORDERED: morphine INJ 4 MG/ML 1 ML (VIAL/SYRINGE) IVP PRN (10:00)
[2017-11-02] MEDS ORDERED: LIDOCAINE 1% INJ 20 ML 20 ML VIAL ONE (10:04)
[2017-11-02 12:00] VITALS: BP 121/61
[2017-11-02] MEDS: ENOXAPARIN 40 MG/0.4 ML (LOVENOX) SYR SC SCH (12:16)
--- NOTE | 2017-11-02 14:58 | Discharge Inst-Simple/Standard ---
Discharge Inst-Standard Discharge Medications New, Converted or Re-Newed RX: Other (stopped methotrexate- call rheumatology for when to resume. ) Patient Instructions/Follow Up Plan of Care/Instructions/FU: ---treating toe infection with clindamycin ---follow up with Dr. Adams in 2 weeks ---follow up with [facility] in 1-2 weeks. Activity as Tolerated: Yes Discharge Diet: Eat Small Frequent Meals Return to The Hospital For: worsening toe pain, fevers Planned Outpatient Orders/Ref. Pneu Vac Indicated: Yes VIMAL CASTANON MD Nov 02, 2017 14:58
[2017-11-02] MEDS ORDERED: CLIN300C11 PO (15:03)
--- NOTE | 2017-11-02 15:49 | Discharge Summary ---
Diagnosis/Chief Complaint Date of Admission Nov 01, 2017 at 13:41 Date of Discharge November 02 2017 Admission Diagnosis Admission Diagnosis right great toe osteomyelitis- Systemic Lupus Erythematosus- tobaccoism- Discharge Diagnosis right great toe osteomyelitis- Systemic Lupus Erythematosus- tobaccoism- hypokalemia Reason Hospital Visit 42 year old female directly admitted for right great toe osteomyelitis- Onset of right great toe pain: around 2 months ago when it started with an ingrown toenail. Location? R great toe Symptoms: joint pain, burning, no oozing, no swelling- difficulty bending the toe. Medicine used: soaking in Epsom, abx cream. What makes it worse? pressure , even light pressure such as her sheet at night ; revenue specialist stan a uric acid level on her recently because he wondered if she had gout. Of note patient is on methotrexate for her SLE. We will hold her methotrexate for now- I have updated Dr. Tye Manuel, Rheumatology. What makes it better? nothing Current Status: worsening Denies chills, She is on 5mg prednisone and plaquenil for lupus. Denies fever, diarrhea, vomiting. Normal urinating, bowel movements She has frequent ingrown toenails. she removed the ingrown part of the toenail herself around 09/29/17. She finished 10 days of doxycycline on 10/10/17- which the paronychia aspect improved a great deal but the joint pain lingered. Patient does continue to smoke cigarettes. Discharge Summary Hospital Course Hospital Course 42 yo F admitted for right great toe osteomyelitis- Dr. Adams, podiatry- consulted obtained MRI- that showed suspicion for osteomyelitis, blood cultures were negative, ESR 25. She was started on IV vancomycin and rocephin. Systemic Lupus Erythematosus- currently under control- holding her methotrexate- continue plaquenil and 5mg prednisone. tobaccoism- encourage cessation hypokalemia- potassium was replaced. right ingrown toenail of great toe- removed at bedside by Dr. Adams. She will be treated for 4 weeks with clindamycin- she will follow up with Dr. Adams in 2 weeks- he will consider debridement. Labs Laboratory Tests 11/02/17 05:55: Red Blood Count 3.65L, Hematocrit 34L, Red Cell Distribution Width 14.7H, Mean Platelet Volume 11.2H, Potassium Level 3.5L, Chloride Level 108H, Alkaline Phosphatase 39L Radiology Reviewed MRI, right foot xray. Procedures None. Discharge Physical Examination Allergies: Coded Allergies: doxycycline (Verified Allergy, Severe, HYPOTENSION, 02/02/17) Vitals & I&Os Vital Signs Date Time Temp Pulse Resp B/P (MAP) Pulse Ox O2 Delivery O2 Flow Rate FiO2 11/02/17 16:25 97.9 80 18 131/61 (84) 99 Room Air General Appearance: Alert, Oriented X3 HEENT: Atraumatic Respiratory: Clear to Auscultation Cardiovascular: Regular Rate Abdominal: Soft Neuro: Strength at 5/5 X4 Ext Discharge Home Medications Reviewed and agree with Discharge Medication list on patient's Discharge Instruction sheet Condition at Discharge improved, stable Instructions to Patient/Family Please see electronic discharge instructions given to patient. Clinical Quality Measures DVT/VTE Risk/Contraindication: Risk Factor Score Per Nursin RFS Level Per Nursing on Admit: 3=High VIAML CASTANON MD Nov 02, 2017 15:49
[2017-11-02] MEDS: cefTRIAXone INJECTION 2,000 MG in NS (IVPB) 50 ML IV SCH (16:02)
[2017-11-02 16:25] VITALS: BP 131/61
[2017-11-02] MEDS ORDERED: busPIRone 15 MG (BUSPAR) TABLET PO SCH (21:00)
[2017-11-02] MEDS ORDERED: HYDROXYCHLOROQUINE SULFATE 300 MG PO SCH (21:00)
[2017-11-02] MEDS ORDERED: HYDROXYCHLOROQUINE 200 MG (PLAQUENIL) TAB PO SCH (21:00)
[2017-11-03] MEDS ORDERED: TROUGH ORDER-PHARMACY XX NR (05:30)
[2017-11-03] MEDS ORDERED: KCL 20 MEQ TAB (K-DUR) PO SCH (07:00)
--- NOTE | 2017-11-05 13:37 | Physician Query Clarification ---
PQ-Link Manifestation-Etiology Admission/Discharge Admission Date: Nov 01, 2017 at 13:41 Discharge Date: Nov 02, 2017 at 16:45 The medical record reflects the following clinical scenario: History/Risk Factors: Ingrown toenails, SLE Clinical Findings: toe pain, MRI concerning for osteomyelitis Treatment: IV vancomycin, Rocephin, Holding Methotrexate Question: Can you specify if the Acute osteomyelitis is due to/associated with SLE? Please document a response below PHYSICIAN RESPONSE Manifestation due to/assoic: No Explanation of clincal finding osteomyelitis likely due to ingrown toenail, sore on the same toe as the osteomyelitis. osteomyelitis is not due to SLE In responding to this query, please exercise your independent professional judgment. The purpose of this communication is to more accurately reflect the complexity of your patients condition. The fact that a question is asked does not imply that any particular answer is desired or expected. Thank you for your timely response to this clarification. Requestors name: Anna THIS PHYSICIAN QUERY FORM IS A PERMANENT PART OF THE MEDICAL RECORD ANNA NGUYEN Nov 05, 2017 13:37 VIMAL CASTANON MD Nov 06, 2017 07:49
== END 2017-11-02 16:45 | disposition home or self-care (01) | DRG 540 ==
LOC: 4TH 13:41
PROVIDERS: ADMIT Family Medicine; ATTEND Family Medicine
DX: M86.171 Other acute osteomyelitis, right ankle and foot (principal); M32.19 Other organ or system involvement in systemic lupus erythematosus; D68.2 Hereditary deficiency of other clotting factors; D57.1 Sickle-cell disease without crisis; F17.210 Nicotine dependence, cigarettes, uncomplicated; Z79.899 Other long term (current) drug therapy; M06.9 Rheumatoid arthritis, unspecified; M79.7 Fibromyalgia; M19.91 Primary osteoarthritis, unspecified site; I69.398 Other sequelae of cerebral infarction; R41.3 Other amnesia; I48.91 Unspecified atrial fibrillation; I25.2 Old myocardial infarction; J30.2 Other seasonal allergic rhinitis; F41.9 Anxiety disorder, unspecified; F32.9 Major depressive disorder, single episode, unspecified; H93.19 Tinnitus, unspecified ear; Z90.13 Acquired absence of bilateral breasts and nipples
CPT/HCPCS: 36415; 73720; 80053; 83605; 85025; 85652; 87040

== ENCOUNTER 2017-11-09 13:45 | Outpatient (RCR) | payer BC, MEDICAID ==
[~2017-11-09 13:45] MED LIST changes: +ACET-2469 PO; +BUSP7.5T5 PO; +CALC-654 PO; +CELE100C84 PO; +CLIN300C11 PO; +FOLI1TAB24 PO; +HYDR200T46 PO; +LIFI1DRO OU; +MTX2.5T PO; +MULT-35 PO; +PRED5TAB PO; +PREG75CA PO
== END 2017-11-20 15:13 | disposition home or self-care (01) ==
PROVIDERS: ATTEND Family Medicine
DX: R53.1 Weakness (principal); M32.9 Systemic lupus erythematosus, unspecified

== ENCOUNTER → 2017-11-23 | Outpatient (CLI) | payer BC, MEDICAID ==
[2017-11-23 10:32] LABS: BASOPHILS % (AUTO) 1 % (0-10); EOSINOPHILS # (AUTO) 0.1 10^3/uL (0.0-0.3); EOSINOPHILS % (AUTO) 3 % (0-10); HEMATOCRIT 40 % (35-52); HEMOGLOBIN 13.6 G/DL (11.5-16.0); LYMPHOCYTES # (AUTO) 1.3 X 10^3 (1.0-4.0); LYMPHOCYTES % (AUTO) 27 % (12-44); MEAN CORPUSCULAR HEMOGLOBIN 31 PG (25-34); MEAN CORPUSCULAR HGB CONC 34 G/DL (32-36); MEAN CORPUSCULAR VOLUME 91 FL (80-99); MEAN PLATELET VOLUME 11.5 FL (7.4-10.4); MONOCYTES # (AUTO) 0.3 X 10^3 (0.0-1.0); MONOCYTES % (AUTO) 6 % (0-12); NEUTROPHILS # (AUTO) 3.1 X 10^3 (1.8-7.8); NEUTROPHILS % (AUTO) 64 % (42-75); PLATELET COUNT 200 10^3/uL (130-400); RED BLOOD COUNT 4.38 10^6/uL (4.35-5.85); RED CELL DISTRIBUTION WIDTH 14.2 % (10.0-14.5); WHITE BLOOD COUNT 4.9 10^3/uL (4.3-11.0)
[2017-11-23 10:39] LABS: BILIRUBIN,URINE NEGATIVE (NEGATIVE); CLARITY,URINE CLEAR; COLOR,URINE YELLOW; GLUCOSE, URINE (UA) NEGATIVE (NEGATIVE); KETONES,URINE NEGATIVE (NEGATIVE); LEUKOCYTE ESTERASE ,URINE NEGATIVE (NEGATIVE); NITRITE,URINE NEGATIVE (NEGATIVE); PH,URINE 5 (5-9); PROTEIN,URINE NEGATIVE (NEGATIVE); UROBILINOGEN,URINE NORMAL (NORMAL)
[2017-11-23 10:49] LABS: ALANINE AMINOTRANSFERASE 9 U/L (0-55); ALBUMIN 4.5 GM/DL (3.2-4.5); ALKALINE PHOSPHATASE 48 U/L (40-136); BILIRUBIN,TOTAL 0.3 MG/DL (0.1-1.0); BUN/CREATININE RATIO 11; CALCIUM 9.6 MG/DL (8.5-10.1); CARBON DIOXIDE 27 MMOL/L (21-32); CHLORIDE 105 MMOL/L (98-107); GFR ESTIMATED > 60; GLUCOSE 83 MG/DL (70-105); POTASSIUM 3.9 MMOL/L (3.6-5.0); SODIUM 140 MMOL/L (135-145); TOTAL PROTEIN 8.1 GM/DL (6.4-8.2)
[2017-11-23 10:53] LABS: BACTERIA,URINE NEGATIVE /HPF; SQUAMOUS EPITHELIAL CELL,UR RARE /HPF
== END ==
LOC: LAB 09:53
PROVIDERS: ATTEND Internal Medicine Rheumatology
DX: M32.19 Other organ or system involvement in systemic lupus erythematosus (principal); Z79.899 Other long term (current) drug therapy
CPT/HCPCS: 36415; 80053; 81000; 82570; 84156; 85025; 85652; 86160; 86225

== ENCOUNTER 2018-02-20 10:03 | Outpatient (RCR) | payer BC, MEDICAID ==
[2018-02-20 10:27] LABS: BILIRUBIN,URINE NEGATIVE (NEGATIVE); CLARITY,URINE CLEAR; COLOR,URINE YELLOW; GLUCOSE, URINE (UA) NEGATIVE (NEGATIVE); KETONES,URINE NEGATIVE (NEGATIVE); LEUKOCYTE ESTERASE ,URINE 2+ (NEGATIVE); NITRITE,URINE NEGATIVE (NEGATIVE); PH,URINE 6 (5-9); PROTEIN,URINE NEGATIVE (NEGATIVE); UROBILINOGEN,URINE NORMAL (NORMAL)
[2018-02-20 10:29] LABS: HEMATOCRIT 37 % (35-52); HEMOGLOBIN 12.8 G/DL (11.5-16.0); RED BLOOD COUNT 4.15 10^6/uL (4.35-5.85); WHITE BLOOD COUNT 6.9 10^3/uL (4.3-11.0)
[2018-02-20 10:30] LABS: BASOPHILS % (AUTO) 0 % (0-10); EOSINOPHILS # (AUTO) 0.1 10^3/uL (0.0-0.3); EOSINOPHILS % (AUTO) 1 % (0-10); LYMPHOCYTES # (AUTO) 1.1 X 10^3 (1.0-4.0); LYMPHOCYTES % (AUTO) 16 % (12-44); MEAN CORPUSCULAR HEMOGLOBIN 31 PG (25-34); MEAN CORPUSCULAR HGB CONC 35 G/DL (32-36); MEAN CORPUSCULAR VOLUME 89 FL (80-99); MEAN PLATELET VOLUME 10.6 FL (7.4-10.4); MONOCYTES # (AUTO) 0.4 X 10^3 (0.0-1.0); MONOCYTES % (AUTO) 6 % (0-12); NEUTROPHILS # (AUTO) 5.3 X 10^3 (1.8-7.8); NEUTROPHILS % (AUTO) 77 % (42-75); PLATELET COUNT 237 10^3/uL (130-400); RED CELL DISTRIBUTION WIDTH 14.9 % (10.0-14.5)
[2018-02-20 10:38] LABS: BACTERIA,URINE NEGATIVE /HPF; SQUAMOUS EPITHELIAL CELL,UR 0-2 /HPF; WBC,URINE 0-2 /HPF
[2018-02-20 10:45] LABS: ALBUMIN 4.4 GM/DL (3.2-4.5); BILIRUBIN,DIRECT 0.1 MG/DL (0.0-0.3); BILIRUBIN,INDIRECT 0.1 MG/DL; BILIRUBIN,TOTAL 0.2 MG/DL (0.1-1.0); TOTAL PROTEIN 7.9 GM/DL (6.4-8.2)
== END 2018-05-21 | disposition home or self-care (01) ==
LOC: LAB 10:03 → EDSTATUS 10:08
PROVIDERS: ATTEND Internal Medicine Rheumatology
DX: M32.19 Other organ or system involvement in systemic lupus erythematosus (principal); Z79.899 Other long term (current) drug therapy
CPT/HCPCS: 36415; 80076; 81000; 82565; 85025; 86225

== ENCOUNTER 2018-05-16 15:29 | Outpatient (RCR) | payer BC, MEDICAID | END 2018-05-16 17:00 | disposition home or self-care (01) | PROVIDERS: ATTEND Nurse Practitioner Family | DX: M54.2 Cervicalgia (principal); M32.9 Systemic lupus erythematosus, unspecified ==

== ENCOUNTER → 2018-05-27 | Outpatient (CLI) | payer BC, MEDICAID ==
[2018-05-27 09:10] LABS: BILIRUBIN,URINE NEGATIVE (NEGATIVE); CLARITY,URINE CLEAR; COLOR,URINE YELLOW; GLUCOSE, URINE (UA) NEGATIVE (NEGATIVE); KETONES,URINE NEGATIVE (NEGATIVE); LEUKOCYTE ESTERASE ,URINE NEGATIVE (NEGATIVE); NITRITE,URINE NEGATIVE (NEGATIVE); PH,URINE 6 (5-9); PROTEIN,URINE NEGATIVE (NEGATIVE); UROBILINOGEN,URINE NORMAL (NORMAL)
[2018-05-27 09:10] LABS: BASOPHILS # (AUTO) 0.1 10^3/uL (0.0-0.1); BASOPHILS % (AUTO) 1 % (0-10); EOSINOPHILS # (AUTO) 0.1 10^3/uL (0.0-0.3); EOSINOPHILS % (AUTO) 2 % (0-10); HEMATOCRIT 39 % (35-52); HEMOGLOBIN 13.1 G/DL (11.5-16.0); LYMPHOCYTES # (AUTO) 0.9 X 10^3 (1.0-4.0); LYMPHOCYTES % (AUTO) 14 % (12-44); MEAN CORPUSCULAR HEMOGLOBIN 31 PG (25-34); MEAN CORPUSCULAR HGB CONC 34 G/DL (32-36); MEAN CORPUSCULAR VOLUME 91 FL (80-99); MEAN PLATELET VOLUME 10.8 FL (7.4-10.4); MONOCYTES # (AUTO) 0.4 X 10^3 (0.0-1.0); MONOCYTES % (AUTO) 6 % (0-12); NEUTROPHILS # (AUTO) 5.3 X 10^3 (1.8-7.8); NEUTROPHILS % (AUTO) 78 % (42-75); PLATELET COUNT 216 10^3/uL (130-400); RED BLOOD COUNT 4.21 10^6/uL (4.35-5.85); RED CELL DISTRIBUTION WIDTH 14.5 % (10.0-14.5); WHITE BLOOD COUNT 6.8 10^3/uL (4.3-11.0)
[2018-05-27 09:28] LABS: BACTERIA,URINE NEGATIVE /HPF; SQUAMOUS EPITHELIAL CELL,UR RARE /HPF; WBC,URINE RARE /HPF
[2018-05-27 09:30] LABS: ERYTHROCYTE SEDIMENTATION RATE 21 MM/HR (0-20)
[2018-05-27 09:37] LABS: ALBUMIN 4.6 GM/DL (3.2-4.5); BILIRUBIN,DIRECT 0.2 MG/DL (0.0-0.3); BILIRUBIN,INDIRECT 0.3 MG/DL; BILIRUBIN,TOTAL 0.5 MG/DL (0.1-1.0); CREATININE SERUM 1.02 MG/DL (0.60-1.30); TOTAL PROTEIN 8.4 GM/DL (6.4-8.2)
== END ==
LOC: LAB 08:49
PROVIDERS: ATTEND Internal Medicine Rheumatology
DX: M32.19 Other organ or system involvement in systemic lupus erythematosus (principal); Z79.899 Other long term (current) drug therapy
CPT/HCPCS: 36415; 80076; 81000; 82565; 85025; 85652; 86141; 86160; 86225

== ENCOUNTER → 2018-08-26 | Outpatient (CLI) | payer BC, MEDICAID ==
--- NOTE | 2018-08-26 11:07 | Diagnostic Imaging Report ---
PROCEDURE: MR imaging of the brain without contrast. TECHNIQUE: Multiplanar, multisequence MR imaging of the brain was performed without contrast. INDICATION: Left arm and leg tingling. There are no previous studies available for comparison. FINDINGS: There is no abnormal signal arising from the brain on the diffusion series to indicate an area of acute ischemia. On the FLAIR series, there is no abnormal signal arising from the periventricular white matter to suggest demyelinating disease. The ventricles are not abnormally dilated. There is mild cortical atrophy present. The degree of atrophy is consistent with the patient's age. The hippocampal/parahippocampal space on the right is somewhat smaller than left. This is nonspecific. There is no sign of mesiotemporal sclerosis. The sella is not enlarged and expected carotid flow voids are evident bilaterally. The optic chiasm is undisturbed. The orbits are symmetrical and within normal limits. There is mucosal thickening of the sphenoid sinus on the right. The sinuses are otherwise generally clear. The seventh and eight nerve complexes are unremarkable. IMPRESSION: 1. There is no evidence for an acute intracranial abnormality. In particular, there is no sign of area of acute ischemia. 2. There is no abnormal signal arising from the periventricular white matter on the FLAIR series to suggest demyelinating disease. 3. There is right sphenoid sinusitis. Dictated by: Dictated on workstation # [id number]
== END ==
LOC: RAD 09:18
PROVIDERS: ATTEND Nurse Practitioner Family
DX: J32.3 Chronic sphenoidal sinusitis (principal)
CPT/HCPCS: 70551

== ENCOUNTER → 2018-08-26 | Outpatient (CLI) | payer BC, MEDICAID ==
[2018-08-26 10:15] LABS: BASOPHILS # (AUTO) 0.1 10^3/uL (0.0-0.1); BASOPHILS % (AUTO) 1 % (0-10); EOSINOPHILS # (AUTO) 0.2 10^3/uL (0.0-0.3); EOSINOPHILS % (AUTO) 3 % (0-10); HEMATOCRIT 35 % (35-52); HEMOGLOBIN 12.2 G/DL (11.5-16.0); LYMPHOCYTES # (AUTO) 1.2 X 10^3 (1.0-4.0); LYMPHOCYTES % (AUTO) 22 % (12-44); MEAN CORPUSCULAR HEMOGLOBIN 32 PG (25-34); MEAN CORPUSCULAR HGB CONC 35 G/DL (32-36); MEAN CORPUSCULAR VOLUME 91 FL (80-99); MEAN PLATELET VOLUME 10.5 FL (7.4-10.4); MONOCYTES # (AUTO) 0.3 X 10^3 (0.0-1.0); MONOCYTES % (AUTO) 6 % (0-12); NEUTROPHILS # (AUTO) 3.8 X 10^3 (1.8-7.8); NEUTROPHILS % (AUTO) 68 % (42-75); PLATELET COUNT 233 10^3/uL (130-400); RED CELL DISTRIBUTION WIDTH 14.7 % (10.0-14.5); WHITE BLOOD COUNT 5.6 10^3/uL (4.3-11.0)
[2018-08-26 10:17] LABS: BILIRUBIN,URINE NEGATIVE (NEGATIVE); CLARITY,URINE CLEAR; COLOR,URINE YELLOW; GLUCOSE, URINE (UA) NEGATIVE (NEGATIVE); KETONES,URINE NEGATIVE (NEGATIVE); LEUKOCYTE ESTERASE ,URINE 1+ (NEGATIVE); NITRITE,URINE NEGATIVE (NEGATIVE); PH,URINE 6.5 (5-9); PROTEIN,URINE NEGATIVE (NEGATIVE); UROBILINOGEN,URINE NORMAL (NORMAL)
[2018-08-26 10:24] LABS: BACTERIA,URINE NEGATIVE /HPF; SQUAMOUS EPITHELIAL CELL,UR RARE /HPF; WBC,URINE RARE /HPF
[2018-08-26 10:34] LABS: ALANINE AMINOTRANSFERASE 31 U/L (0-55); ALBUMIN 4.3 GM/DL (3.2-4.5); ALKALINE PHOSPHATASE 51 U/L (40-136); BILIRUBIN,TOTAL 0.5 MG/DL (0.1-1.0); BUN/CREATININE RATIO 9; CALCIUM 10.1 MG/DL (8.5-10.1); CARBON DIOXIDE 27 MMOL/L (21-32); CHLORIDE 106 MMOL/L (98-107); CREATININE SERUM 0.95 MG/DL (0.60-1.30); GFR ESTIMATED > 60; GLUCOSE 86 MG/DL (70-105); POTASSIUM 4.1 MMOL/L (3.6-5.0); SODIUM 140 MMOL/L (135-145); TOTAL PROTEIN 7.3 GM/DL (6.4-8.2)
== END ==
LOC: LAB 09:14
PROVIDERS: ATTEND Internal Medicine Rheumatology
DX: M32.19 Other organ or system involvement in systemic lupus erythematosus (principal); Z79.899 Other long term (current) drug therapy
CPT/HCPCS: 36415; 80053; 81000; 82570; 84156; 85025; 86160; 86225

== ENCOUNTER 2018-08-28 11:22 | Outpatient (RCR) | payer BC | END 2018-09-01 | disposition home or self-care (01) | DX: M54.2 Cervicalgia (principal); M25.511 Pain in right shoulder ==

== ENCOUNTER → 2018-11-28 | Outpatient (CLI) | payer BC, MEDICAID ==
[2018-11-28 11:15] LABS: BILIRUBIN,URINE NEGATIVE (NEGATIVE); CLARITY,URINE CLEAR; COLOR,URINE YELLOW; GLUCOSE, URINE (UA) NEGATIVE (NEGATIVE); KETONES,URINE NEGATIVE (NEGATIVE); LEUKOCYTE ESTERASE ,URINE 1+ (NEGATIVE); NITRITE,URINE NEGATIVE (NEGATIVE); PH,URINE 7 (5-9); PROTEIN,URINE NEGATIVE (NEGATIVE); UROBILINOGEN,URINE NORMAL (NORMAL)
[2018-11-28 11:16] LABS: BASOPHILS # (AUTO) 0.1 10^3/uL (0.0-0.1); BASOPHILS % (AUTO) 1 % (0-10); EOSINOPHILS # (AUTO) 0.1 10^3/uL (0.0-0.3); EOSINOPHILS % (AUTO) 3 % (0-10); HEMATOCRIT 37 % (35-52); HEMOGLOBIN 12.8 G/DL (11.5-16.0); LYMPHOCYTES # (AUTO) 1.6 X 10^3 (1.0-4.0); LYMPHOCYTES % (AUTO) 28 % (12-44); MEAN CORPUSCULAR HEMOGLOBIN 31 PG (25-34); MEAN CORPUSCULAR HGB CONC 34 G/DL (32-36); MEAN CORPUSCULAR VOLUME 91 FL (80-99); MONOCYTES # (AUTO) 0.4 X 10^3 (0.0-1.0); MONOCYTES % (AUTO) 7 % (0-12); NEUTROPHILS # (AUTO) 3.4 X 10^3 (1.8-7.8); NEUTROPHILS % (AUTO) 61 % (42-75); PLATELET COUNT 209 10^3/uL (130-400); RED CELL DISTRIBUTION WIDTH 14.9 % (10.0-14.5); WHITE BLOOD COUNT 5.6 10^3/uL (4.3-11.0)
[2018-11-28 11:33] LABS: ALBUMIN 4.5 GM/DL (3.2-4.5); BILIRUBIN,DIRECT 0.1 MG/DL (0.0-0.3); BILIRUBIN,INDIRECT 0.1 MG/DL; BILIRUBIN,TOTAL 0.2 MG/DL (0.1-1.0); CREATININE SERUM 0.99 MG/DL (0.60-1.30); TOTAL PROTEIN 7.8 GM/DL (6.4-8.2)
[2018-11-28 11:45] LABS: BACTERIA,URINE NEGATIVE /HPF; SQUAMOUS EPITHELIAL CELL,UR RARE /HPF; WBC,URINE RARE /HPF
[2018-11-28 11:48] LABS: URINE CREATININE FOR RATIO 81 MG/DL (30-125); URINE PROTEIN FOR RATIO ONLY < 6 MG/DL (6-12)
[2018-11-28 11:49] LABS: ERYTHROCYTE SEDIMENTATION RATE 17 MM/HR (0-20)
== END ==
LOC: LAB 10:52
PROVIDERS: ATTEND Internal Medicine Rheumatology
DX: M32.19 Other organ or system involvement in systemic lupus erythematosus (principal)
CPT/HCPCS: 36415; 80076; 81000; 82565; 82570; 84156; 85025; 85652; 86141; 86160; 86225

== ENCOUNTER 2018-12-05 08:47 | Outpatient (RCR) | payer BC, MEDICAID | END 2019-03-05 | disposition home or self-care (01) | LOC: CARD 08:47 | PROVIDERS: ATTEND Nurse Practitioner Family | DX: R00.2 Palpitations (principal) ==

== ENCOUNTER → 2019-03-04 | Outpatient (CLI) | payer BC, MEDICAID ==
--- NOTE | 2019-03-04 10:12 | Diagnostic Imaging Report ---
INDICATION: Right sided thumb pain. TECHNIQUE: Three views of the right hand, along with single view right thumb, 9:48 AM. CORRELATION STUDY: None FINDINGS: There is normal alignment and appearance of the osseous structures of the hand. The joint spaces are maintained. There is no acute fracture. Imaging of the thumb appearing unremarkable. Soft tissues are unremarkable. IMPRESSION: 1. Negative for acute bony abnormality of the right hand and/or thumb. Dictated by: Dictated on workstation # [id number]
== END ==
LOC: RAD 09:07
PROVIDERS: ATTEND Internal Medicine Rheumatology
DX: M79.644 Pain in right finger(s) (principal)
CPT/HCPCS: 73130

== ENCOUNTER 2019-03-19 10:09 | Outpatient (RCR) | payer BC, MEDICAID ==
[~2019-03-19 10:09] MED LIST changes: -ACET-2469 PO; +ACET-2715 PO
[2019-03-19 10:37] LABS: BILIRUBIN,URINE NEGATIVE (NEGATIVE); CLARITY,URINE CLEAR; COLOR,URINE YELLOW; GLUCOSE, URINE (UA) NEGATIVE (NEGATIVE); KETONES,URINE NEGATIVE (NEGATIVE); LEUKOCYTE ESTERASE ,URINE NEGATIVE (NEGATIVE); NITRITE,URINE NEGATIVE (NEGATIVE); PH,URINE 6.5 (5-9); PROTEIN,URINE NEGATIVE (NEGATIVE)
[2019-03-19 10:41] LABS: BASOPHILS # (AUTO) 0.1 10^3/uL (0.0-0.1); BASOPHILS % (AUTO) 1 % (0-10); EOSINOPHILS # (AUTO) 0.2 10^3/uL (0.0-0.3); EOSINOPHILS % (AUTO) 3 % (0-10); HEMATOCRIT 38 % (35-52); HEMOGLOBIN 12.6 G/DL (11.5-16.0); LYMPHOCYTES # (AUTO) 1.5 X 10^3 (1.0-4.0); LYMPHOCYTES % (AUTO) 25 % (12-44); MEAN CORPUSCULAR HEMOGLOBIN 30 PG (25-34); MEAN CORPUSCULAR HGB CONC 33 G/DL (32-36); MEAN CORPUSCULAR VOLUME 91 FL (80-99); MEAN PLATELET VOLUME 10.6 FL (7.4-10.4); MONOCYTES # (AUTO) 0.5 X 10^3 (0.0-1.0); MONOCYTES % (AUTO) 9 % (0-12); NEUTROPHILS # (AUTO) 3.7 X 10^3 (1.8-7.8); NEUTROPHILS % (AUTO) 62 % (42-75); PLATELET COUNT 174 10^3/uL (130-400); WHITE BLOOD COUNT 5.9 10^3/uL (4.3-11.0)
[2019-03-19 11:00] LABS: ALANINE AMINOTRANSFERASE 23 U/L (0-55); ALBUMIN 4.5 GM/DL (3.2-4.5); ALKALINE PHOSPHATASE 57 U/L (40-136); BILIRUBIN,DIRECT 0.2 MG/DL (0.0-0.3); BILIRUBIN,INDIRECT 0.1 MG/DL; BILIRUBIN,TOTAL 0.3 MG/DL (0.1-1.0); BUN/CREATININE RATIO 10; CALCIUM 9.8 MG/DL (8.5-10.1); CARBON DIOXIDE 26 MMOL/L (21-32); CHLORIDE 105 MMOL/L (98-107); CREATININE SERUM 0.96 MG/DL (0.60-1.30); GFR ESTIMATED > 60; GLUCOSE 89 MG/DL (70-105); POTASSIUM 4.1 MMOL/L (3.6-5.0); SODIUM 140 MMOL/L (135-145); TOTAL PROTEIN 7.7 GM/DL (6.4-8.2)
[2019-03-19 11:00] LABS: URINE CREATININE FOR RATIO 117 MG/DL (30-125); URINE PROTEIN FOR RATIO ONLY < 6 MG/DL (6-12)
[2019-03-19 11:09] LABS: WBC,URINE RARE /HPF
[2019-03-19 11:10] LABS: BACTERIA,URINE NEGATIVE /HPF; SQUAMOUS EPITHELIAL CELL,UR RARE /HPF
[2019-03-19 11:11] LABS: ERYTHROCYTE SEDIMENTATION RATE 17 MM/HR (0-20)
== END 2019-06-17 | disposition home or self-care (01) ==
LOC: LAB 10:09
PROVIDERS: ATTEND Internal Medicine Rheumatology
DX: M32.19 Other organ or system involvement in systemic lupus erythematosus (principal)
CPT/HCPCS: 36415; 80053; 80076; 81000; 82248; 82570; 84156; 85025; 85652; 86141; 86225

== ENCOUNTER → 2019-07-16 | Outpatient (CLI) | payer BC, MEDICAID ==
[2019-07-16 12:21] LABS: BASOPHILS # (AUTO) 0.1 10^3/uL (0.0-0.1); BASOPHILS % (AUTO) 1 % (0-10); EOSINOPHILS # (AUTO) 0.2 10^3/uL (0.0-0.3); EOSINOPHILS % (AUTO) 3 % (0-10); HEMATOCRIT 36 % (35-52); HEMOGLOBIN 12.3 G/DL (11.5-16.0); LYMPHOCYTES # (AUTO) 1.9 X 10^3 (1.0-4.0); LYMPHOCYTES % (AUTO) 29 % (12-44); MEAN CORPUSCULAR HEMOGLOBIN 32 PG (25-34); MEAN CORPUSCULAR HGB CONC 34 G/DL (32-36); MEAN CORPUSCULAR VOLUME 92 FL (80-99); MEAN PLATELET VOLUME 10.5 FL (7.4-10.4); MONOCYTES # (AUTO) 0.5 X 10^3 (0.0-1.0); MONOCYTES % (AUTO) 8 % (0-12); NEUTROPHILS # (AUTO) 3.9 X 10^3 (1.8-7.8); NEUTROPHILS % (AUTO) 59 % (42-75); PLATELET COUNT 205 10^3/uL (130-400); RED CELL DISTRIBUTION WIDTH 15.2 % (10.0-14.5); WHITE BLOOD COUNT 6.5 10^3/uL (4.3-11.0)
[2019-07-16 12:39] LABS: ALANINE AMINOTRANSFERASE 26 U/L (0-55); ALBUMIN 4.6 GM/DL (3.2-4.5); ALKALINE PHOSPHATASE 58 U/L (40-136); BILIRUBIN,TOTAL 0.2 MG/DL (0.1-1.0); BUN/CREATININE RATIO 10; CALCIUM 9.9 MG/DL (8.5-10.1); CARBON DIOXIDE 26 MMOL/L (21-32); CHLORIDE 103 MMOL/L (98-107); CREATININE SERUM 1.01 MG/DL (0.60-1.30); GFR ESTIMATED 59; GLUCOSE 86 MG/DL (70-105); POTASSIUM 3.5 MMOL/L (3.6-5.0); SODIUM 138 MMOL/L (135-145); TOTAL PROTEIN 7.9 GM/DL (6.4-8.2)
[2019-07-16 12:47] LABS: ERYTHROCYTE SEDIMENTATION RATE 32 MM/HR (0-20)
== END ==
LOC: LAB 12:02
PROVIDERS: ATTEND Internal Medicine Rheumatology
DX: M32.19 Other organ or system involvement in systemic lupus erythematosus (principal)
CPT/HCPCS: 36415; 80053; 85025; 85652; 86141; 86160; 86225

== ENCOUNTER → 2020-01-13 | Outpatient (CLI) | payer BC, MEDICAID | LOC: LABNPT 06:41 | PROVIDERS: ATTEND Family Medicine | DX: J06.9 Acute upper respiratory infection, unspecified (principal); Z20.828 Contact with and (suspected) exposure to other viral communicable diseases | CPT/HCPCS: 87635 ==

== ENCOUNTER → 2020-11-24 | Outpatient (CLI) | payer OTHER, MEDICAID ==
[~2020-11-24] MED LIST changes: -ACET-2715 PO; +ACET-3075 PO; -CLIN300C11 PO; +CLIN300C12 PO; -FOLI1TAB24 PO; +FOLI1TAB33 PO
[2020-11-24 10:40] LABS: BASOPHILS # (AUTO) 0.1 10^3/uL (0.0-0.1); BASOPHILS % (AUTO) 2 % (0-10); EOSINOPHILS # (AUTO) 0.2 10^3/uL (0.0-0.3); EOSINOPHILS % (AUTO) 3 % (0-10); HEMATOCRIT 37 % (35-52); HEMOGLOBIN 12.3 g/dL (11.5-16.0); LYMPHOCYTES # (AUTO) 1.8 10^3/uL (1.0-4.0); LYMPHOCYTES % (AUTO) 38 % (12-44); MEAN CORPUSCULAR HEMOGLOBIN 31 pg (25-34); MEAN CORPUSCULAR HGB CONC 34 g/dL (32-36); MEAN CORPUSCULAR VOLUME 92 fL (80-99); MEAN PLATELET VOLUME 10.5 fL (9.0-12.2); MONOCYTES # (AUTO) 0.4 10^3/uL (0.0-1.0); MONOCYTES % (AUTO) 9 % (0-12); NEUTROPHILS # (AUTO) 2.3 10^3/uL (1.8-7.8); NEUTROPHILS % (AUTO) 47 % (42-75); PLATELET COUNT 218 10^3/uL (130-400); WHITE BLOOD COUNT 4.8 10^3/uL (4.3-11.0)
[2020-11-24 11:02] LABS: ALANINE AMINOTRANSFERASE 25 U/L (0-55); ALBUMIN 4.4 GM/DL (3.2-4.5); ALKALINE PHOSPHATASE 58 U/L (40-136); BILIRUBIN,TOTAL 0.3 MG/DL (0.1-1.0); BUN/CREATININE RATIO 10; CALCIUM 10.2 MG/DL (8.5-10.1); CARBON DIOXIDE 29 MMOL/L (21-32); CHLORIDE 104 MMOL/L (98-107); CREATININE SERUM 0.92 MG/DL (0.60-1.30); GFR ESTIMATED > 60; GLUCOSE 84 MG/DL (70-105); POTASSIUM 3.9 MMOL/L (3.6-5.0); SODIUM 141 MMOL/L (135-145)
== END ==
LOC: LAB 10:02
PROVIDERS: ATTEND Internal Medicine Rheumatology
DX: M32.19 Other organ or system involvement in systemic lupus erythematosus (principal); Z79.899 Other long term (current) drug therapy
CPT/HCPCS: 36415; 80053; 85025; 86160; 86225

== ENCOUNTER → 2021-06-27 | Outpatient (CLI) | payer OTHER, MEDICAID ==
[~2021-06-27] MED LIST changes: +CLIN-144 PO; -CLIN300C12 PO
[2021-06-27 08:01] LABS: BASOPHILS # (AUTO) 0.1 10^3/uL (0.0-0.1); BASOPHILS % (AUTO) 1 % (0-10); EOSINOPHILS # (AUTO) 0.2 10^3/uL (0.0-0.3); EOSINOPHILS % (AUTO) 2 % (0-10); HEMATOCRIT 35 % (35-52); LYMPHOCYTES # (AUTO) 1.7 10^3/uL (1.0-4.0); LYMPHOCYTES % (AUTO) 17 % (12-44); MEAN CORPUSCULAR HEMOGLOBIN 31 pg (25-34); MEAN CORPUSCULAR HGB CONC 35 g/dL (32-36); MEAN CORPUSCULAR VOLUME 91 fL (80-99); MEAN PLATELET VOLUME 11.4 fL (9.0-12.2); MONOCYTES # (AUTO) 0.4 10^3/uL (0.0-1.0); MONOCYTES % (AUTO) 5 % (0-12); NEUTROPHILS # (AUTO) 7.3 10^3/uL (1.8-7.8); NEUTROPHILS % (AUTO) 76 % (42-75); PLATELET COUNT 207 10^3/uL (130-400); WHITE BLOOD COUNT 9.6 10^3/uL (4.3-11.0)
[2021-06-27 08:36] LABS: ALBUMIN 4.3 GM/DL (3.2-4.5); BILIRUBIN,TOTAL 0.7 MG/DL (0.1-1.0); CALCIUM 9.9 MG/DL (8.5-10.1); CREATININE SERUM 0.89 MG/DL (0.60-1.30); POTASSIUM 3.6 MMOL/L (3.6-5.0)
== END ==
LOC: LAB 07:23
PROVIDERS: ATTEND Internal Medicine Rheumatology
DX: M32.9 Systemic lupus erythematosus, unspecified (principal); Z79.899 Other long term (current) drug therapy
CPT/HCPCS: 36415; 80053; 85025; 86160; 86225

== ENCOUNTER → 2021-10-05 | Outpatient (CLI) | payer OTHER, MEDICAID ==
--- NOTE | 2021-10-05 12:27 | Diagnostic Imaging Report ---
INDICATION: Pain after kicking trash can. TECHNIQUE: 3 views of the right foot CORRELATION STUDY: 10/30/2017 FINDINGS: There is progressive lucency and distortion of the tuft of the distal phalanx great toe. This is progressed from prior. Remaining osseous structures otherwise intact and unremarkable. No acute fracture. Soft tissue edema suggested about the great toe. No abnormal soft tissue gas collections or foreign body. IMPRESSION: 1. Negative for acute fracture. 2. Progressive what appears to be osteolytic change about the distal phalanx great toe. Given findings, could reflect underlying chronic osteomyelitis. Dictated by: Dictated on workstation # [id number]
--- NOTE | 2021-10-05 12:49 | Diagnostic Imaging Report ---
INDICATION: Right foot pain. TECHNIQUE: 3 views right great toe 11:33 AM. CORRELATION STUDY: 10/30/2017 FINDINGS: No acute fracture of the visualized osseous structures great toe. There however appears to be some progressive ostial lysis of the distal phalanx great toe. Could reflect a previous or chronic osteomyelitis. Mild soft tissue edema. IMPRESSION: 1. Negative for acute fracture or dislocation right great toe. Progressive osteolytic change about the distal phalanx. Could be reflective of a chronic or previous osteomyelitis. Could also reflect a previous traumatic change. Dictated by: Dictated on workstation # [id number]
== END ==
LOC: RAD 10:30
PROVIDERS: ATTEND Family Medicine
DX: M79.674 Pain in right toe(s) (principal)
CPT/HCPCS: 73630; 73660

== ENCOUNTER → 2021-10-18 | Outpatient (CLI) | payer OTHER, MEDICAID ==
--- NOTE | 2021-10-18 13:06 | Diagnostic Imaging Report ---
Exam: MRI right foot without contrast. Date: October 18, 2021. Indication: 46-year-old female, right foot and great toe pain. Comparison: Radiographs October 05, 2021. MRI right foot November 01, 2017. Technique: Multiple noncontrast MRI sequences of the right foot were obtained. 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 There is edema-like signal and T1 marrow signal loss involving the first distal phalanx. There is a chronic appearing contour deformity of the mid to distal aspect of the first distal phalanx. There is nonspecific adjacent increased signal in the soft tissues, particularly dorsally. There is no identified fracture line. The additional bone marrow signal is unremarkable. The joint spaces are well preserved. There is no joint effusion. The Lisfranc ligament proper is intact. The imaged tendons appear intact. Impression: 1. Abnormal signal in the first distal phalanx with most likely chronic appearing contour deformity of the mid to distal aspect of the first distal phalanx with nonspecific adjacent abnormal signal in the soft tissues. There is note of findings most compatible with osteomyelitis of the first distal phalanx on prior MRI on November 01, 2017. Particularly given the presence of current low-level abnormal soft tissue and marrow edema, findings may reflect acute on chronic osteomyelitis. Correlation for signs and symptoms of active infection including an adjacent skin ulcer is recommended. Chronic osteomyelitis is also a consideration. Dictated by: Dictated on workstation # [id number]
== END ==
LOC: RAD 09:30
PROVIDERS: ATTEND Podiatrist Foot & Ankle Surgery
DX: M86.171 Other acute osteomyelitis, right ankle and foot (principal)

== ENCOUNTER 2021-11-11 05:28 | Outpatient (CLI) | payer OTHER, MEDICAID ==
[~2021-11-11] VITALS: Ht 152.4 cm; Wt 61.4 kg
[~2021-11-11 05:28] MED LIST changes: +METH2.5T PO; +[UNRECOGNIZED DRUG - CODE] SQ
== END 2021-11-11 11:17 | disposition home or self-care (01) ==
LOC: PREOP 05:28
PROVIDERS: ATTEND Podiatrist Foot & Ankle Surgery
DX: Z01.818 Encounter for other preprocedural examination (principal)

== ENCOUNTER 2021-11-18 05:50 | Day surgery (SDC) | payer OTHER, MEDICAID ==
[~2021-11-18] VITALS: Ht 152 cm; Wt 61.4 kg
[2021-11-18] VITALS (8 sets, daily range): BP systolic 109–138; BP diastolic 63–72
[2021-11-18] MEDS ORDERED: LACTATED RINGERS 1,000 ML IV PRN (06:15)
[2021-11-18] MEDS ORDERED: ceFAZolin INJECTION 1,000 MG VIAL IV ONE (06:15)
[2021-11-18] MEDS ORDERED: LIDOCAINE 1% INJ 20 ML VIAL ONE (07:05)
[2021-11-18] MEDS ORDERED: BUPIVACAINE 0.5% 30 ML (SENSORCAINE) VIAL ONE (07:05)
[2021-11-18] MEDS ORDERED: fentaNYL INJ 100 MCG/2 ML AMP ONE (07:35)
[2021-11-18] MEDS ORDERED: MIDAZOLAM 2 MG/2 ML (VERSED) VIAL ONE (07:36)
[2021-11-18] MEDS ORDERED: PROPOFOL INJECTION 50 ML IV ONE (07:40)
--- NOTE | 2021-11-18 07:44 | Progress Note-Pre Operative ---
Pre-Operative Progress Note H&P Reviewed The H&P was reviewed, patient examined and no changes noted. Date Seen by Provider: Nov 18, 2021 Time Seen by Provider: 07:44 Date H&P Reviewed: Nov 18, 2021 Time H&P Reviewed: 07:44 Pre-Operative Diagnosis: Osteomyelitis, onychocryptosis, right hallux SEAN,MALU Verma DPM Nov 18, 2021 07:44
--- NOTE | 2021-11-18 08:48 | Anesthesia-General Post-Op ---
MAC Patient Condition Mental Status/LOC: Same as Preop Cardiovascular: Satisfactory Nausea/Vomiting: Absent Respiratory: Satisfactory Pain: Controlled Complications: Absent Post Op Complications Complications None Follow Up Care/Instructions Patient Instructions None needed. Anesthesiology Discharge Order Discharge Order Patient is doing well, no complaints, stable vital signs, no apparent adverse anesthesia problems. No complications reported per nursing. SHANTELLE RIVERO CRNA Nov 18, 2021 08:48
--- NOTE | 2021-11-18 08:51 | Progress Note-Post Operative ---
Post-Operative Progess Note Surgeon (s)/Ride Mechanic (s) Surgeon MALU ESTRADA DPM Ride Mechanic: none Pre-Operative Diagnosis Osteomyelitis, onychocryptosis, right hallux Post-Operative Diagnosis same Procedure & Operative Findings Date of Procedure 11/18/21 Procedure Performed/Findings partial amputation right hallux Anesthesia Type MAC Estimated Blood Loss Estimated blood loss (mL): minimal Specimens/Packing Specimens Removed distal phalanx, right hallux MALU ESTRADA DPM Nov 18, 2021 08:51
[2021-11-18] MEDS ORDERED: ACHD5005 PO (08:54)
[2021-11-18] MEDS ORDERED: ONDANSETRON 4 MG/2 ML (SDV) Z0FRAN IVP PRN (09:00)
[2021-11-18] MEDS ORDERED: LACTATED RINGERS 1,000 ML IV SCH (09:00)
[2021-11-18] MEDS ORDERED: HYDROcodone/APAP 5 MG/325 MG (LORTAB) TAB PO PRN (09:00)
[2021-11-18] MEDS ORDERED: morphine INJ 10 MG/ML 1ML (SYR OR VIAL) IVP ONE (09:00)
--- NOTE | 2021-11-18 09:26 | Diagnostic Imaging Report ---
EXAMINATION: Right foot two view. HISTORY: Postop. COMPARISON: 10/05/2021. FINDINGS: There has been resection of the tuft of the great toe. No acute fracture is seen. Alignment is normal. Joint spaces are normal. IMPRESSION: 1. Postop resection of the tuft of the great toe. Dictated by: Dictated on workstation # [id number]
--- NOTE | 2021-11-18 16:22 | OPERATIVE REPORT ---
DATE OF SERVICE: 11/18/2021 SURGEON: Kinza Estrada DPM. PREOPERATIVE DIAGNOSIS: Chronic onychocryptosis with osteomyelitis, distal right hallux. POSTOPERATIVE DIAGNOSIS: Chronic onychocryptosis with osteomyelitis, distal right hallux. PROCEDURE PERFORMED: Partial amputation of right hallux. WOUND CLASS: Clean contaminated. ANESTHESIA: Monitored anesthesia care. HEMOSTASIS: Pneumatic ankle tourniquet at 250 mmHg. INDICATIONS FOR PROCEDURE: A 46-year-old female presents complaining of a chronic issue with her right great toe. Conservative therapy has met with unsatisfactory results and MRI indicated a possible osteomyelitis of the right great toe since she has had a continual problems with ingrown as well as symptoms with the toe at the distal aspect. She is agreeable to surgical intervention after risks and complications were discussed at length. No guarantees were extended to the patient and she is willing to proceed. DESCRIPTION OF PROCEDURE: The patient was brought back to the operating table and placed in secure supine position. Appropriate timeout was performed. Anesthesia was achieved with 15 mL of 1:1 mixture of 1% Xylocaine, 0.5% Marcaine injected in a Herrera block. A pneumatic ankle tourniquet was placed on the right lower extremity over several layers of padding. The right foot was then prepped and draped in a normal sterile manner. The right foot was then elevated, allowed to exsanguinate after which the tourniquet was inflated to 250 mmHg. Attention was then directed to the right hallux where two semielliptical incisions were created, the first was distal to the interphalangeal joint extending from the medial and lateral aspect of the proximal portion of the distal phalanx from medial, dorsal and then to lateral aspect. The second incision was created from the same starting point extending distally to the hyponychium area and then back into the lateral aspect of the original incision at its endpoint. This allowed for deeper dissection down to bone at the proximal aspect of the distal phalanx. Next, utilizing a power sagittal saw, a dorsal to plantar osteotomy was performed, which allowed separation from the majority of the hallux from the distal phalanx, which was sent for gross and microscopic evaluation. It should be noted that there was no significant pathology evaluated with procedures at this point, the proximal portion of the distal phalanx appeared to be in good order. The integrity or strength to the bone was in normal limits. No purulence, no necrosis identified. The plantar flap was irrigated and the wound was flushed thoroughly after which closure was performed. The plantar flap was approximated to the dorsal aspect of the incision utilizing 4-0 Prolene in a simple interrupted type stitch. Excellent approximation to the skin was noted at this time without any skin tension. Postoperative dressing consisted of Betadine soaked Adaptic, sterile 4 x 4, sterile Kerlix all secured with the Coban wrap. The patient tolerated the anesthesia and procedure well, was transported from the operating room to the recovery area with vital signs stable and vascular status intact to all digits of the right foot. She is to be partial weightbearing with no pressure to the forefoot on the right with crutches. We will see her back in the office in 10 days' period of time or sooner if necessary. Job ID: [id number] DocumentID: [id number] Dictated Date: 11/18/2021 09:02:05 Dev Manager Date: 11/18/2021 16:22:17 Dictated By: KINZA ESTRADA DPM
== END 2021-11-18 09:44 | disposition home or self-care (01) ==
LOC: SDC 05:50
PROVIDERS: ATTEND Podiatrist Foot & Ankle Surgery
DX: M86.8X7 Other osteomyelitis, ankle and foot (principal); L60.0 Ingrowing nail; F17.210 Nicotine dependence, cigarettes, uncomplicated
CPT/HCPCS: 73620; 84703; 87081

== ENCOUNTER → 2022-03-15 | Outpatient (CLI) | payer OTHER, MEDICAID ==
[~2022-03-15] MED LIST changes: +ACHD5005 PO
[2022-03-15 08:43] LABS: BASOPHILS # (AUTO) 0.1 10^3/uL (0.0-0.1); BASOPHILS % (AUTO) 2 % (0-10); EOSINOPHILS # (AUTO) 0.3 10^3/uL (0.0-0.3); EOSINOPHILS % (AUTO) 5 % (0-10); HEMATOCRIT 35 % (35-52); LYMPHOCYTES # (AUTO) 1.7 10^3/uL (1.0-4.0); LYMPHOCYTES % (AUTO) 30 % (12-44); MEAN CORPUSCULAR HEMOGLOBIN 32 pg (25-34); MEAN CORPUSCULAR HGB CONC 34 g/dL (32-36); MEAN CORPUSCULAR VOLUME 93 fL (80-99); MEAN PLATELET VOLUME 10.6 fL (9.0-12.2); MONOCYTES # (AUTO) 0.6 10^3/uL (0.0-1.0); MONOCYTES % (AUTO) 10 % (0-12); NEUTROPHILS # (AUTO) 2.9 10^3/uL (1.8-7.8); NEUTROPHILS % (AUTO) 52 % (42-75); PLATELET COUNT 254 10^3/uL (130-400); WHITE BLOOD COUNT 5.5 10^3/uL (4.3-11.0)
[2022-03-15 09:01] LABS: ALBUMIN 4.1 GM/DL (3.2-4.5); BILIRUBIN,TOTAL 0.2 MG/DL (0.1-1.0); CALCIUM 9.7 MG/DL (8.5-10.1); CREATININE SERUM 0.91 MG/DL (0.60-1.30); POTASSIUM 3.7 MMOL/L (3.6-5.0); TOTAL PROTEIN 7.6 GM/DL (6.4-8.2)
== END ==
LOC: LAB 08:21
PROVIDERS: ATTEND Internal Medicine Rheumatology
DX: Z79.899 Other long term (current) drug therapy (principal)
CPT/HCPCS: 36415; 80053; 85025

== ENCOUNTER → 2022-04-24 | Outpatient (CLI) | payer OTHER, MEDICAID ==
[2022-04-24 07:19] LABS: BASOPHILS # (AUTO) 0.1 10^3/uL (0.0-0.1); BASOPHILS % (AUTO) 1 % (0-10); EOSINOPHILS # (AUTO) 0.2 10^3/uL (0.0-0.3); EOSINOPHILS % (AUTO) 3 % (0-10); HEMATOCRIT 35 % (35-52); HEMOGLOBIN 12.1 g/dL (11.5-16.0); LYMPHOCYTES % (AUTO) 12 % (12-44); MEAN CORPUSCULAR HEMOGLOBIN 31 pg (25-34); MEAN CORPUSCULAR HGB CONC 34 g/dL (32-36); MEAN CORPUSCULAR VOLUME 92 fL (80-99); MEAN PLATELET VOLUME 10.7 fL (9.0-12.2); MONOCYTES # (AUTO) 0.4 10^3/uL (0.0-1.0); MONOCYTES % (AUTO) 4 % (0-12); NEUTROPHILS # (AUTO) 6.9 10^3/uL (1.8-7.8); NEUTROPHILS % (AUTO) 80 % (42-75); PLATELET COUNT 241 10^3/uL (130-400); WHITE BLOOD COUNT 8.6 10^3/uL (4.3-11.0)
[2022-04-24 07:41] LABS: ERYTHROCYTE SEDIMENTATION RATE 18 MM/HR (0-20)
== END ==
LOC: LAB 06:56
PROVIDERS: ATTEND Podiatrist Foot & Ankle Surgery
DX: L03.90 Cellulitis, unspecified (principal)
CPT/HCPCS: 36415; 85025; 85652

== ENCOUNTER → 2022-10-02 | Outpatient (CLI) | payer OTHER, MEDICAID ==
[2022-10-02 10:01] LABS: BASOPHILS # (AUTO) 0.1 10^3/uL (0.0-0.1); BASOPHILS % (AUTO) 1 % (0-10); EOSINOPHILS # (AUTO) 0.2 10^3/uL (0.0-0.3); EOSINOPHILS % (AUTO) 3 % (0-10); HEMATOCRIT 37 % (35-52); HEMOGLOBIN 12.9 g/dL (11.5-16.0); LYMPHOCYTES # (AUTO) 1.7 10^3/uL (1.0-4.0); LYMPHOCYTES % (AUTO) 31 % (12-44); MEAN CORPUSCULAR HEMOGLOBIN 32 pg (25-34); MEAN CORPUSCULAR HGB CONC 35 g/dL (32-36); MEAN CORPUSCULAR VOLUME 91 fL (80-99); MEAN PLATELET VOLUME 11.3 fL (9.0-12.2); MONOCYTES # (AUTO) 0.5 10^3/uL (0.0-1.0); MONOCYTES % (AUTO) 9 % (0-12); NEUTROPHILS # (AUTO) 3.1 10^3/uL (1.8-7.8); NEUTROPHILS % (AUTO) 56 % (42-75); PLATELET COUNT 225 10^3/uL (130-400); WHITE BLOOD COUNT 5.6 10^3/uL (4.3-11.0)
[2022-10-02 10:25] LABS: ALBUMIN 4.6 GM/DL (3.2-4.5); BILIRUBIN,DIRECT 0.2 MG/DL (0.0-0.3); BILIRUBIN,INDIRECT 0.2 MG/DL; BILIRUBIN,TOTAL 0.4 MG/DL (0.1-1.0); TOTAL PROTEIN 7.8 GM/DL (6.4-8.2)
== END ==
LOC: LAB 09:39
PROVIDERS: ATTEND Internal Medicine Rheumatology
DX: Z79.899 Other long term (current) drug therapy (principal)
CPT/HCPCS: 36415; 80076; 85025

== ENCOUNTER 2022-12-06 06:47 | Outpatient (RCR) | payer OTHER, MEDICAID ==
[~2022-12-06 06:47] MED LIST changes: -HYDR200T46 PO; +HYDR200T71 PO
[2022-12-06 07:05] LABS: BASOPHILS # (AUTO) 0.1 10^3/uL (0.0-0.1); BASOPHILS % (AUTO) 1 % (0-10); EOSINOPHILS # (AUTO) 0.3 10^3/uL (0.0-0.3); EOSINOPHILS % (AUTO) 3 % (0-10); HEMATOCRIT 39 % (35-52); HEMOGLOBIN 13.3 g/dL (11.5-16.0); LYMPHOCYTES % (AUTO) 23 % (12-44); MEAN CORPUSCULAR HEMOGLOBIN 31 pg (25-34); MEAN CORPUSCULAR HGB CONC 34 g/dL (32-36); MEAN CORPUSCULAR VOLUME 90 fL (80-99); MEAN PLATELET VOLUME 11.2 fL (9.0-12.2); MONOCYTES # (AUTO) 0.6 10^3/uL (0.0-1.0); MONOCYTES % (AUTO) 7 % (0-12); NEUTROPHILS # (AUTO) 5.6 10^3/uL (1.8-7.8); NEUTROPHILS % (AUTO) 65 % (42-75); PLATELET COUNT 220 10^3/uL (130-400); WHITE BLOOD COUNT 8.6 10^3/uL (4.3-11.0)
[2022-12-06 07:24] LABS: ALANINE AMINOTRANSFERASE 18 U/L (0-55); ALBUMIN 4.3 GM/DL (3.2-4.5); ALKALINE PHOSPHATASE 64 U/L (40-136); BILIRUBIN,DIRECT < 0.1 MG/DL (0.0-0.3); BILIRUBIN,INDIRECT 0.1 MG/DL; BILIRUBIN,TOTAL 0.2 MG/DL (0.1-1.0); TOTAL PROTEIN 7.6 GM/DL (6.4-8.2)
== END 2022-12-18 | disposition home or self-care (01) ==
LOC: LAB 06:47
PROVIDERS: ATTEND Internal Medicine Rheumatology
DX: Z51.81 Encounter for therapeutic drug level monitoring (principal); Z79.899 Other long term (current) drug therapy
CPT/HCPCS: 36415; 80076; 85025